=== PATIENT | female | born 1980 | race Caucasian/White ===

== ENCOUNTER → 2023-05-13 | Outpatient (CLI) | payer OTHER, SELFPAY ==
--- NOTE | 2023-05-13 08:19 | BI_ITS ---
MAMMOGRAPHY - BILATERAL SCREENING REASON FOR EXAM: Female, 42 years old. Routine annual screening examination. PERTINENT HISTORY: Grandmother with breast cancer. Aunt with breast cancer. TECHNIQUE: Digital bilateral breast maura (3D mammographic acquisition) in the CC and MLO projections. 2-D mediolateral oblique (MLO) and craniocaudad (CC) views of both breasts were obtained. CAD: Full Field Digital Mammography with Computer Added Detection was performed. COMPARISON: Comparison is made with prior outside examination June 19, 2021. FINDINGS: Breast Composition: The breasts are heterogeneously dense, which may obscure small masses. There are no dominant masses or suspicious calcifications. No other significant abnormalities are identified. There has been no significant change since the prior study. BI/SCRN MAMM (CAD)W/MAURA BILAT IMPRESSION: Stable bilateral screening mammogram. Yearly follow-up mammogram recommended. (A) ASSESSMENT CATEGORY: BIRADS Category 1: Negative. A letter regarding these results will be sent to the patient by the facility within 30 days. Approximately 10% of breast cancers are not detected by mammography. A normal mammogram should not delay biopsy of a clinically suspicious abnormality. [id number] Electronically Signed: Dheeraj Balderrama MD at 9:09 EDT ,
--- OUTSIDE RECORDS SUMMARY | 2023-05-13 08:30 | XMS RPT_ITS | CCD ---
Author Name Unknown Address [address] [place] [address] Organization [facility] Care Team Providers Care Parachute Panel Joiner Name Role Phone ERIC CORMIER Primary Care Physician ERIC CORMIER Attending Unavailable ERIC CORMIER Primary Care Unavailable ERIC CORMIER Attending Unavailable ERIC CORMIER Primary Care Unavailable ERIC CORMIER Primary Care Unavailable ERIC CORMIER Admitting Unavailable ERIC CORMIER Attending Unavailable Allergies Allergy Classification Reported Allergen(s) Allergy Type Date of Onset Reaction(s) Facility (5 sources) Latex Allergy to substance Eruption of skin (disorder), Itching (finding) [facility] (4 sources) Iodine; Translations: [iodine] Drug Allergy [facility] Medications Current Medications Medication Drug Class(es) Dates Sig (Normalized) Sig (Original) acetaminophen 325 mg oral capsule (9 sources) Start: 10-05-2021 acetaminophen 325 mg oral capsule Dose : 650 mg = 2 cap(s), Oral, q6h, PRN as needed for pain, # 40 cap(s), 0 Refill(s) Start Date: 10/05/21 Status: Ordered Problems Active Problems Problem Classification Problem Date Documented Da te Episodic/Chronic Abdominal pain (5 sources) Pain in female pelvis 07-23-2016 Episodic Genitourinary symptoms and ill-defined conditions (5 sources) Microscopic hematuria 07-23-2016 Episodic Mood disorders (1 source) Depressive disorder; Translations: [Depression, unspecified] Onset: 10-05-2021 Chronic Nausea and vomiting (1 source) Nausea and vomiting; Translations: [Nausea with vomiting, unspecified] Onset: 10-05-2021 Episodic Other female genital disorders (1 source) Abnormal uterine bleeding; Translations: [Abnormal uterine and vaginal bleeding, unspecified] Onset: 10-05-2021 Chronic Other gastrointestinal disorders (5 sources) Irritable bowel syndrome 07-23-2016 Chronic Other nutritional; endocrine; and metabolic disorders (6 sources) Obesity; Translations: [Obesity, unspecified] Onset: 10-05-2021 07-28-2016 Chronic Other nutritional; endocrine; and metabolic disorders (4 sources) Obese class II 10-05-2021 Chronic Urinary tract infections (6 sources) Chronic interstitial cystitis; Translations: [Interstitial cystitis (chronic) without hematuria] Onset: 10-05-2021 07-23-2016 Chronic Past or Other Problems Problem Classification Problem Date Documented Da te Episodic/Chronic Other screening for suspected conditions (not mental disorders or infectious disease) (2 sources) Abnormal coagulation profile; Translations: [Abnormal coagulation profile] Onset: 04-22-2022 Episodic Results Test Name Value Interpretation Reference Range Facil ity Vital Signs Date Time Vital Sign Value Performing Clinician Faci lity 10-06-2021 11:15-0400 Body temperature 98.24 [degF] DR LUCIO WARD DO [facility] 10-06-2021 11:15-0400 Diastolic blood pressure 85 mm[Hg] DR LUCIO WARD DO [facility] 10-06-2021 11:15-0400 Heart rate 77 /min DR LUCIO WARD DO [facility] 10-06-2021 11:15-0400 Respiratory rate 18 /min DR LUCOI WARD DO [facility] 10-06-2021 11:15-0400 Systolic blood pressure 132 mm[Hg] DR LUCIO WARD DO [facility] 10-06-2021 07:13-0400 Body temperature 97.7 [degF] DR LUCIO WARD DO [facility] 10-06-2021 07:13-0400 Diastolic blood pressure 77 mm[Hg] DR LUCIO WARD DO [facility] 10-06-2021 07:13-0400 Heart rate 77 /min DR LUCIO WARD DO [facility] 10-06-2021 07:13-0400 Respiratory rate 18 /min DR LUCIO WARD DO [facility] 10-06-2021 07:13-0400 Systolic blood pressure 124 mm[Hg] DR LUCIO WARD DO [facility] 10-06-2021 05:35-0400 Body temperature 98.24 [degF] DR LUCIO WARD DO [facility] 10-06-2021 05:35-0400 Diastolic blood pressure 82 mm[Hg] DR LUCIO WARD DO [facility] 10-06-2021 05:35-0400 Heart rate 116 /min DR LUCIO WARD DO [facility] 10-06-2021 05:35-0400 Mean blood pressure 59 mm[Hg] DR LUCIO WARD DO [facility] 10-06-2021 05:35-0400 Respiratory rate 18 /min DR LUCIO WARD DO [facility] 10-06-2021 05:35-0400 Systolic blood pressure 13 mm[Hg] DR LUCIO WARD DO [facility] 10-05-2021 21:07-0400 Mean blood pressure 116 mm[Hg] DR LUCIO WARD DO [facility] 10-05-2021 20:20-0400 Body temperature 97.34 [degF] DR LUCIO WARD DO [facility] 10-05-2021 15:21-0400 Body temperature 97.34 [degF] DR LUCIO WARD DO [facility] 10-05-2021 11:55-0400 Body temperature 96.8 [degF] DR LUCIO WARD DO [facility] 10-05-2021 11:45-0400 Diastolic Blood Pressure NBP [address] LUCIO WARD DO [facility] 10-05-2021 11:45-0400 Heart rate 96 /min DR LUCIO WARD DO [facility] 10-05-2021 11:45-0400 Mean blood pressure 82 mm[Hg] DR LUCIO WARD DO [facility] 10-05-2021 11:45-0400 Systolic Blood Pressure NBP [address] LUCIO WARD DO [facility] 10-05-2021 11:40-0400 Heart rate 90 /min DR LUCIO WARD DO [facility] 10-05-2021 11:37-0400 Heart rate 96 /min DR LUCIO WARD DO [facility] 10-05-2021 11:29-0400 Diastolic Blood Pressure NBP [address] LUCIO WARD DO [facility] 10-05-2021 11:29-0400 Mean blood pressure 90 mm[Hg] DR LUCIO WARD DO [facility] 10-05-2021 11:29-0400 Systolic Blood Pressure NBP [address] LUCIO WARD DO [facility] 10-05-2021 11:07-0400 Diastolic Blood Pressure NBP [address] LUCIO WARD DO [facility] 10-05-2021 11:07-0400 Systolic Blood Pressure NBP [address] LUCIO WARD DO [facility] 10-05-2021 11:06-0400 Mean blood pressure 82 mm[Hg] DR LUCIO WARD DO [facility] 10-05-2021 09:55-0400 Body temperature 97.99 [degF] DR LUCIO WARD DO [facility] 10-05-2021 09:50-0400 Body temperature 97.93 [degF] DR LUCIO WARD DO [facility] 10-05-2021 09:45-0400 Body temperature 97.92 [degF] DR LUCIO WARD DO [facility] 10-05-2021 05:57-0400 Body height 170.[address] LUCIO WARD DO [facility] 10-05-2021 05:57-0400 Body weight 115.[address] LUCIO WARD DO [facility] 10-05-2021 05:57-0400 diastolic 80 mm[Hg] DR LUCIO WARD DO [facility] 10-05-2021 05:57-0400 Heart rate 90 /min DR LUCIO WARD DO [facility] 10-05-2021 05:57-0400 systolic 146 mm[Hg] DR LUCIO WARD DO [facility] 09-21-2021 07:53-0400 Body height 170.[address] LUCIO WARD DO [facility] 09-21-2021 07:53-0400 Body temperature 98.06 [degF] DR LUCIO WARD DO [facility] 09-21-2021 07:53-0400 Body weight 114.[address] LUCIO WARD DO [facility] 09-21-2021 07:53-0400 diastolic 95 mm[Hg] DR LUCIO WARD DO [facility] 09-21-2021 07:53-0400 Heart rate 80 /min DR LUCIO WARD DO [facility] 09-21-2021 07:53-0400 systolic 146 mm[Hg] DR LUCIO WARD DO [facility] Encounters Encounter Date Encounter Type Care Provider Facility Start: 03-30-2023 End: 03-30-2023 Patient encounter procedure ERIC CORMIRE [facility] Start: 03-25-2023 ambulatory ERIC CORMIER Facility:B Start: 03-23-2023 End: 03-24-2023 ambulatory ERIC CORMIER Facility:A Start: 03-23-2023 End: 03-23-2023 Patient encounter procedure ERIC CORMIER [facility] Start: 04-22-2022 End: 04-27-2022 ambulatory ERIC CORMIER Facility:A Start: 10-30-2021 End: 10-30-2021 Patient encounter procedure ERIC CORMIER [facility] Start: 10-05-2021 End: 10-06-[address] LUCIO WARD DO [facility] Start: 09-21-2021 End: 09-21-[address] LUCIO WARD DO [facility] Procedures Date Procedure Procedure Detail Performing Clinician Start: 02-28-2014 Endoscope, device (p hysical object) DR LUCIO WARD DO Start: 02-28-[address] SHYANNE WARD DO Start: 02-28-2001 Endoscope, device (p hysical object) DR LUCIO WARD DO Immunizations Immunization Date Immunization Notes Care Provider [facility] 12-24-2020 hepatitis B vaccine, adult dosage DR LUCIO WARD DO [facility] 12-24-2020 SARS-CoV-2 (COVID-19 ) mRNA-[id number] LUCIO WARD DO [facility] 12-01-2020 influenza virus vacc ine, unspecified formulation DR LUCIO WARD DO [facility] 07-24-2020 hepatitis B vaccine, adult dosage DR LUCIO WARD DO [facility] 03-26-2020 SARS-CoV-2 (COVID-19 ) mRNA-[id number] LUCIO WARD DO [facility] 02-27-2020 SARS-CoV-2 (COVID-19 ) mRNA-[address] LUCIO WARD DO [facility] 12-14-2019 hepatitis B vaccine, adult dosage DR LUCIO WARD DO [facility] 12-14-2019 influenza virus vacc ine, unspecified formulation DR LUCIO WARD DO [facility] 12-08-2018 influenza virus vacc ine, unspecified formulation DR LUCIO WARD DO [facility] 11-24-2017 influenza virus vacc ine, unspecified formulation DR LUCIO WARD DO [facility] 01-02-2014 influenza virus vacc ine, unspecified formulation DR LUCIO WARD DO [facility] 12-21-2012 influenza virus vacc ine, unspecified formulation DR LUCIO WARD DO [facility] 01-14-2012 influenza virus vacc ine, unspecified formulation DR LUCIO WARD DO [facility] 10-26-2010 influenza virus vacc ine, unspecified formulation DR LUCIO WARD DO [facility] 12-08-2009 tetanus toxoid, redu driss diphtheria toxoid, and acellular pertussis vaccine, adsorbed DR LUCIO WARD DO [facility] Payers Date Payer Category Payer Unknown [id number] 1980 Unknown [id number] 1980 Unknown [id number] 1980 Unknown [id number] Social History Date Type Detail Facility Start: 09-21-2021 Tobacco smoking status Never s moked tobacco (finding) [facility] Sex Assigned At Female [facility] Functional Status Date Assessment Result [facility] [place] 10-06-2021 Functional Status None [facility] 10-06-2021 Functional Status Yes [facility] 10-06-2021 Functional Status Multilevel home [facility] 10-06-2021 Functional Status Done [facility] 10-05-2021 Functional Status High Risk Safe ty Non-Slip footwear, Room check performed [facility] 10-05-2021 Functional Status Patient Identi fied Identification band, Verbal [facility] 10-05-2021 Functional Status [facility] 10-05-2021 Functional Status Maintained [facility] Mental Status Date Assessment Result [facility] [place] 10-06-2021 Mental Status Orientation Oriented x 4 [facility] 10-05-2021 Mental Status [facility] 10-05-2021 Mental Status [facility] 10-05-2021 Mental Status [facility] Clinical Notes 06-25-2021 to 03-23-2023 Note Date & Type Note Facility 03-23-2023 Note ORIGINAL EXAMINATION: CT OF THE ABDOMEN AND PELVIS WITH CONTRAST03/23/2023 6:[address] ABDOMEN/PELVIS WITH CONTRAST TECHNIQUE: CT of the abdomen and pelvis was performed with the administration of intravenous contrast. Multiplanar reformatted images are provided for review. Automated exposure control, iterative reconstruction, and/or weight based adjustment of the mA/kV was utilized to reduce the radiation dose to as low as reasonably achievable. HISTORY: ORDERING SYSTEM PROVIDED HISTORY: Reason for Exam: UNSPECIFIED ABDOMINAL PAIN PT STATES ABD PAIN, PROGRESSIVELY GETTING WORSE SINCE [id number], LLQ PAIN, WEIGHT LOSS, HYSTERECTOMY 22' FINDINGS: The size, density, and morphology of the liver, spleen, adrenals, kidneys, pancreas and unopacified loops of bowel are unremarkable. Prior cholecystectomy. The opacified aorta demonstrates normal size and morphology without aneurysmal dilation or dissection. There are no enlarged lymph nodes by pathologic size criteria. Appendix is normal. There is no free fluid within the pelvis. Prior hysterectomy. The bladder has an unremarkable CT appearance. The osseous structures are without gross lytic or sclerotic lesion. The lung bases are clear. IMPRESSION: No acute intra-abdominal intrapelvic pathology. Interpreted by: Joaquin Starr MD Preliminary Report By: Joaquin Starr MD Electronically signed By Joaquin Starr MD Dictated Date: 03/23/2023 9:58:49 PM Prelim Date: 03/23/2023 10:00:57 PM Sign Date: 03/23/2023 10:00:57 PM Ordering Provider: [facility] 10-30-2021 Note ORIGINAL EXAMINATION: CTA OF THE CHEST 10/30/2021 1:08 pm TECHNIQUE: CTA of the chest was performed after the administration of intravenous contrast. Multiplanar reformatted images are provided for review. MIP images are provided for review. Automated exposure control, iterative reconstruction, and/or weight based adjustment of the mA/kV was utilized to reduce the radiation dose to as low as reasonably achievable. COMPARISON: None. HISTORY: ORDERING SYSTEM PROVIDED HISTORY: Reason for Exam: ELEVATED D DIMER, SOB, POST OP ELEVATED D DIMER, SOB, 3.5 WKS POST OP/HYSTER FINDINGS: No osseous abnormality identified. Minimal scattered areas of subsegmental atelectasis are present at the lower lobes bilaterally and there is also minimal volume loss at the posterior margin of the left upper lobe. No other airspace disease is visible. Trace left pleural fluid is noted. No mediastinal adenopathy is identified. This exam is positive for multiple pulmonary artery segmental defects compatible with pulmonary emboli. There is distal main pulmonary artery involvement bilaterally, with bilateral lower lobe segmental emboli. No definite indicators of right heart strain seen. No additional contributory abnormality. IMPRESSION: Multiple bilateral segmental pulmonary emboli, especially lower lobes, with some distal main pulmonary artery involvement as well. No evidence for right heart strain. IMPORTANT: PHYSICIAN, ATTEND TO THIS REPORT CAROLE!!! Interpreted by: Pablo Duenas MD Preliminary Report By: Pablo Duenas MD Electronically signed By Pablo Duenas MD Dictated Date: 10/30/2021 1:09:57 PM Prelim Date: 10/30/2021 1:12:29 PM Sign Date: 10/30/2021 1:12:29 PM Ordering Provider: [facility] 10-30-2021 Note ORIGINAL EXAMINATION: CTA OF THE CHEST 10/30/2021 1:08 pm TECHNIQUE: CTA of the chest was performed after the administration of intravenous contrast. Multiplanar reformatted images are provided for review. MIP images are provided for review. Automated exposure control, iterative reconstruction, and/or weight based adjustment of the mA/kV was utilized to reduce the radiation dose to as low as reasonably achievable. COMPARISON: None. HISTORY: ORDERING SYSTEM PROVIDED HISTORY: Reason for Exam: ELEVATED D DIMER, SOB, POST OP ELEVATED D DIMER, SOB, 3.5 WKS POST OP/HYSTER FINDINGS: No osseous abnormality identified. Minimal scattered areas of subsegmental atelectasis are present at the lower lobes bilaterally and there is also minimal volume loss at the posterior margin of the left upper lobe. No other airspace disease is visible. Trace left pleural fluid is noted. No mediastinal adenopathy is identified. This exam is positive for multiple pulmonary artery segmental defects compatible with pulmonary emboli. There is distal main pulmonary artery involvement bilaterally, with bilateral lower lobe segmental emboli. No definite indicators of right heart strain seen. No additional contributory abnormality. IMPRESSION: Multiple bilateral segmental pulmonary emboli, especially lower lobes, with some distal main pulmonary artery involvement as well. No evidence for right heart strain. IMPORTANT: PHYSICIAN, ATTEND TO THIS REPORT CAROLE!!! Interpreted by: Pablo Duenas MD Preliminary Report By: Pablo Duenas MD Electronically signed By Pablo Duenas MD Dictated Date: 10/30/2021 1:09:57 PM Prelim Date: 10/30/2021 1:12:29 PM Sign Date: 10/30/2021 1:12:29 PM Ordering Provider: [facility] 10-06-2021 Note A. Received in formalin, labeled with the patients name, Case #[id number], and uterus and cervix Weight/dimensions-160 g and measures 10.5 cm (fundus to cervix), 5 cm (cornu to cornu), 5.5 cm (anterior to posterior). Vlomre-xgd-bfnh, smooth Cervix/endocervix-4.5 cm in diameter and 4.5 cm in length Gujpwsrswot-kpapoolcav-wlnjrw endometrial cavity measuring 3 x 4 cm, endometrium lining measuring 0.2 cm Okxjllnswr-vic-pmjg measuring up to 3 cm with no masses or nodules identified. RS-3 Cassette Summary: A1-cervix A2-Anterior endomyometrium A3-Posterior endomyometrium Dictated by [facility] 10-06-2021 Note A. Received in formalin, labeled with the patients name, Case #[id number], and uterus and cervix Weight/dimensions-160 g and measures 10.5 cm (fundus to cervix), 5 cm (cornu to cornu), 5.5 cm (anterior to posterior). Hmpaeh-cfb-hjrk, smooth Cervix/endocervix-4.5 cm in diameter and 4.5 cm in length Liupdytcrrz-meymsqfaen-zoxsts endometrial cavity measuring 3 x 4 cm, endometrium lining measuring 0.2 cm Lxemjpoomb-mdr-nhep measuring up to 3 cm with no masses or nodules identified. RS-3 Cassette Summary: A1-cervix A2-Anterior endomyometrium A3-Posterior endomyometrium Dictated by [facility] 10-06-2021 Note Discharge Instructions Thank you for allowing [facility] to assist you with your healthcare needs. The following is important discharge information regarding your hospital visit. Your Care Team ERIC CORMIER Your Diagnosis Abnormal uterine bleeding Post-op pain Post-operative nausea and vomiting Class II obesity Depression Interstitial cystitis What to do next Instructions From Your Doctor No heavy lifting > 10 pounds for 6 weeks. No swimming or tub baths. Showers are okay. Pelvic Rest until seen for your post-op appointment. No driving for 2 weeks or if taking narcotic pain medications. Call the office if you have a fever > 100.4 F, nausea/vomiting, heavy vaginal bleeding, redness/bruising/drainage from incisions, or uncontrolled pain. Please make sure to take stool softeners as needed to prevent constipation. Follow the wound care instructions provided to you from the office. Follow Up Appointments Follow Up with LUCIO WARD DO, Obstetrics & Gynecology When Why: Follow-up as scheduled Where: [address] [place] [address]- [phone] The Following Activity and Diet Have Been Ordered for You Discharge Activity - Discontinued -- Follow the post-operative/post-procedure activity instructions provided by your physician's office., 10/05/21 12:01:00 EDT Discharge Activity - Ordered -- Lifting Restricted less than 10 pounds May Shower Sexual [place] Restricted, No intercouorse or tub bathing for 6 weeks, no driving while taking pain meds, 10/06/21 8:08:00 EDT Discharge Diet - Ordered -- No changes were made to your diet during your hospital stay. Please resume your pre hospitalization diet on discharge., 10/06/21 8:08:00 EDT The Following Equipment Has Been Ordered for You Discharge Home Equipment Discharge Wound Care - Ordered -- Call office if temp greater than 100.4, increase in bleeding, or foul smelling discharge, 10/06/21 8:08:00 EDT The Following Treatments Have Been Ordered for You Discharge Labs No qualifying data available. Discharge Radiology No qualifying data available. Other Therapies No qualifying data available. Post Acute Orders No qualifying data available. Someone Will Contact You Regarding These Home Health Referrals No home referrals have been ordered for you. No one will call you. Allergies Latex (Rash, Itching) iodine Medications Please ask your primary doctor or pharmacist before taking any other medication not listed, including over the counter drugs, herbal medications, vitamins and or supplements as they may interact with your home medications. What How Much When Why Instructions Last Dose Unchanged acetaminophen (acetaminophen 325 mg oral capsule) 2 cap by mouth Every 6 hours as needed for as needed for pain Printed Prescription Unchanged acetaminophen (Tylenol Extra Strength 500 mg oral tablet) 2 tab(s) by mouth Every 4 hours as needed for for pain Unchanged amitriptyline (amitriptyline 10 mg oral tablet) 1 tab(s) by mouth Daily at bedtime Unchanged ergocalciferol (Vitamin D2 1.25 mg (50,000 intl units) oral capsule) 1 cap by mouth Every week ON TUESDAY Unchanged ibuprofen (ibuprofen 200 mg oral tablet) 2 tab(s) by mouth Every 4 hours as needed for for pain Unchanged ibuprofen (ibuprofen 600 mg oral tablet) 1 tab(s) by mouth Every 6 hours as needed for for pain Take with food or milk. Printed Prescription Unchanged oxyCODONE (oxyCODONE 5 mg oral tablet ( IMMEDIATE release )) 1 tab(s) by mouth Every 6 hours as needed for for pain Post-op pain Duration: 4 Days Printed Prescription Unchanged senna (senna (sennosides) 8.6 mg oral tablet) 2 tab(s) by mouth Daily at bedtime as needed for for constipation Printed Prescription Unchanged sertraline (sertraline 50 mg oral tablet) 1 tab(s) by mouth Daily at bedtime Please take this list to your next doctor s visit. Bring all medications you take, including over the counter medications, herbals and other supplements with you to your doctor s visit. Patients and families are reminded to discard old lists and to update any records with all medication providers or retail pharmacies. Medication Leaflets acetaminophen (oral) (a SEET a MIN oh fen) Actamin, Anacin AF, Aurophen, Bromo [place], Children's Tylenol, Mapap, M-Pap, Pharbetol, [place] Childrens, Tactinal, Tempra Quicklets, Tycolene, Tylenol, Vitapap What is the most important information I should know about acetaminophen? An overdose of acetaminophen can damage your liver or cause . Call your doctor at once if you have upper stomach pain, loss of appetite, dark urine, or jaundice (yellowing of your skin or eyes). Stop taking this medicine and get medical help if you have skin redness or a blistering rash. What is acetaminophen? Acetaminophen is used to reduce fever and relieve minor pain caused by conditions such as colds or flu, headache, muscle aches, arthritis, and menstrual cramps. Acetaminophen may also be used for purposes not listed in this medication guide. What should I discuss with my healthcare provider before taking acetaminophen? You should not take acetaminophen if you are allergic to it, or if you take other medications that contain acetaminophen. Ask a doctor or pharmacist if this medicine is safe to use if you've ever had cirrhosis of the liver, or if you drink alcohol daily. Ask a doctor before using this medicine if you are or . How should I take acetaminophen? Use exactly as directed on the label, or as prescribed by your doctor. An acetaminophen overdose can damage your liver or cause . Adults and teenagers at least 12 years old: Do not take more than 1000 milligrams (mg) at one time or more than 4000 mg in 24 hours. Children younger than 12 years old: Do not take more than 5 doses of children's formula acetaminophen in 24 hours. Do not give extra-strength acetaminophen to a child younger than 12 years old without medical advice. A child's dose is based on age and weight. Carefully follow the dosing instructions provided with this medicine. Ask a doctor before giving this medicine to a child younger than 2 years. Acetaminophen made for infants comes with its own medicine dropper or oral syringe. Measuring with the wrong device may cause an overdose. Use only the provided dosing device provided to measure an infant's dose. Acetaminophen comes in many different forms such as capsules, liquid, chewable or disintegrating tablets, and dissolving powders or granules. Read and carefully follow any Instructions for Use provided with your medicine. Ask your doctor or pharmacist if you need help. Stop taking acetaminophen and call your doctor if: you still have a sore throat after 2 days of use; you still have a fever after 3 days of use; you still have pain after 7 days of use (or 5 days if treating a child); you have a skin rash, ongoing headache, nausea, vomiting, redness or swelling; or your symptoms get worse, or if you have any new symptoms. Taking acetaminophen may cause false results with certain blood glucose monitors. If you have diabetes, ask your doctor about the best way to monitor your blood sugar levels while using acetaminophen. Store at room temperature away from heat and moisture. What happens if I miss a dose? Acetaminophen is used when needed. If you are on a dosing schedule, skip any missed dose. Do not use two doses at one time. What happens if I overdose? Seek emergency medical attention or call the Poison Help line at . An overdose can be fatal. Overdose symptoms include vomiting, stomach pain, and yellowing of your skin or eyes. What should I avoid while taking acetaminophen? Avoid using other medicines that may contain acetaminophen. Avoid drinking alcohol. What are the possible side effects of acetaminophen? Get emergency medical help if you have signs of an allergic reaction: hives; difficulty breathing; swelling of your face, lips, tongue, or throat. In rare cases, acetaminophen may cause a severe skin reaction that can be fatal, even if you took acetaminophen in the past and had no reaction. Stop taking this medicine and call your doctor right away if you have skin redness or a rash that spreads and causes blistering and peeling. Stop taking acetaminophen and call your doctor at once if you have signs of liver problems: stomach pain (upper right side); loss of appetite; tiredness, itching; dark urine, tc-colored stools; or jaundice (yellowing of the skin or eyes). Less serious side effects may be more likely, and you may have none at all. This is not a complete list of side effects and others may occur. Call your doctor for medical advice about side effects. You may report side effects to FDA at 7-287-TFV-2274. What other drugs will affect acetaminophen? Other drugs may affect acetaminophen, including prescription and qdbh-asl-avitavi medicines, vitamins, and herbal products. Tell your doctor about all other medicines you use. Where can I get more information? Your pharmacist can provide more information about acetaminophen. Remember, keep this and all other medicines out of the reach of children, never share your medicines with others, and use this medication only for the indication prescribed. Every effort has been made to ensure that the information provided by [employer]. ('[employer]') is accurate, up-to-date, and complete, but no guarantee is made to that effect. Drug information contained herein may be time sensitive. [employer] information has been compiled for use by healthcare practitioners and consumers in the [place] and therefore [employer] does not warrant that uses outside of the [place] are appropriate, unless specifically indicated otherwise. [employer] drug information does not endorse drugs, diagnose patients or recommend therapy. [employer] drug information is an informational resource designed to assist licensed healthcare practitioners in caring for their patients and/or to serve consumers viewing this service as a supplement to, and not a substitute for, the expertise, skill, knowledge and judgment of healthcare practitioners. The absence of a warning for a given drug or drug combination in no way should be construed to indicate that the drug or drug combination is safe, effective or appropriate for any given patient. [employer] does not assume any responsibility for any aspect of healthcare administered with the aid of information [employer] provides. The information contained herein is not intended to cover all possible uses, directions, precautions, warnings, drug interactions, allergic reactions, or adverse effects. If you have questions about the drugs you are taking, check with your doctor, nurse or pharmacist. Copyright 9609-3101 [facility] [employer]. Version: .. Revision Date: 04/17/2021. ibuprofen (EYE bue PROE fen) Advil, Genpril, IBU, Midol IB, Motrin IB, Proprinal, Smart Sense Children's Ibuprofen What is the most important information I should know about ibuprofen? Ibuprofen can increase your risk of fatal heart attack or stroke. Do not use this medicine just before or after heart bypass surgery (coronary artery bypass graft, or CABG). Ibuprofen may also cause stomach or intestinal bleeding, which can be fatal. What is ibuprofen? Ibuprofen is a nonsteroidal anti-inflammatory drug (NSAID). Ibuprofen is used to reduce fever and treat pain or inflammation caused by many conditions such as headache, toothache, back pain, arthritis, menstrual cramps, or minor injury. This medicine is used in adults and children who are at least 6 months old. Ibuprofen may also be used for purposes not listed in this medication guide. What should I discuss with my healthcare provider before taking ibuprofen? Ibuprofen can increase your risk of fatal heart attack or stroke, even if you don't have any risk factors. Do not use this medicine just before or after heart bypass surgery (coronary artery bypass graft, or CABG). Ibuprofen may also cause stomach or intestinal bleeding, which can be fatal. These conditions can occur without warning while you are using ibuprofen, especially in older adults. You should not use ibuprofen if you are allergic to it, or if you have ever had an asthma attack or severe allergic reaction after taking aspirin or an NSAID. Ask a doctor or pharmacist if this medicine is safe to use if you have ever had: heart disease, high blood pressure, high cholesterol, diabetes, or if you smoke; a heart attack, stroke, or blood clot; stomach ulcers or bleeding; liver or kidney disease; asthma; or if you take aspirin to prevent heart attack or stroke. Ask a doctor before using this medicine if you are or . If you are , you should not take ibuprofen unless your doctor tells you to. Taking an NSAID during the last 20 weeks of can cause serious heart or kidney problems in the unborn baby and possible complications with your . Do not give ibuprofen to a child younger than 6 months old without the advice of a doctor. How should I take ibuprofen? Use exactly as directed on the label, or as prescribed by your doctor. Use the lowest dose that is effective in treating your condition. An ibuprofen overdose can damage your stomach or intestines. The maximum amount of ibuprofen for adults is 800 milligrams per dose or 3200 mg per day (4 maximum doses). A child's dose of ibuprofen is based on the age and weight of the child. Carefully follow the dosing instructions provided with children's ibuprofen for the age and weight of your child. Ask a doctor or pharmacist if you have questions. Take ibuprofen with food or milk to lessen stomach upset. Shake the oral suspension (liquid) before you measure a dose. Use the dosing syringe provided, or use a medicine dose-measuring device (not a kitchen spoon). You must chew the chewable tablet before you swallow it. Store at room temperature away from moisture and heat. Do not allow the liquid medicine to freeze. What happens if I miss a dose? Since ibuprofen is used when needed, you may not be on a dosing schedule. Skip any missed dose if it's almost time for your next dose. Do not use two doses at one time. What happens if I overdose? Seek emergency medical attention or call the Poison Help line at . Overdose symptoms may include nausea, vomiting, stomach pain, drowsiness, black or bloody stools, coughing up blood, shallow breathing, fainting, or coma. What should I avoid while taking ibuprofen? Ask a doctor or pharmacist before using other medicines for pain, fever, swelling, or cold/flu symptoms. They may contain ingredients similar to ibuprofen (such as aspirin, ibuprofen, ketoprofen, or naproxen). Avoid taking aspirin unless your doctor tells you to. If you also take aspirin to prevent stroke or heart attack, taking ibuprofen can make aspirin less effective in protecting your heart and blood vessels. If you take both medicines, take ibuprofen at least 8 hours before or 30 minutes after you take aspirin (non-enteric coated form). Avoid drinking alcohol. It may increase your risk of stomach bleeding. What are the possible side effects of ibuprofen? Get emergency medical help if you have signs of an allergic reaction (hives, difficult breathing, swelling in your face or throat) or a severe skin reaction (fever, sore throat, burning eyes, skin pain, red or purple skin rash with blistering and peeling). Get emergency medical help if you have signs of a heart attack or stroke: chest pain spreading to your jaw or shoulder, sudden numbness or weakness on one side of the body, slurred speech, leg swelling, feeling short of breath. Stop using ibuprofen and call your doctor at once if you have: changes in your vision; shortness of breath (even with mild exertion); swelling or rapid weight gain; a skin rash, no matter how mild; signs of stomach bleeding--bloody or tarry stools, coughing up blood or vomit that looks like coffee grounds; liver problems--nausea, upper stomach pain, itching, tired feeling, flu-like symptoms, loss of appetite, dark urine, tc-colored stools, jaundice (yellowing of the skin or eyes); low red blood cells (anemia)--pale skin, feeling light-headed or short of breath, rapid heart rate, trouble concentrating; or kidney problems--little or no urinating, painful or difficult urination, swelling in your feet or ankles, feeling tired or short of breath. Common side effects may include: nausea, vomiting, gas; bleeding; or dizziness, headache. This is not a complete list of side effects and others may occur. Call your doctor for medical advice about side effects. You may report side effects to FDA at 8-071-PHH-8107. What other drugs will affect ibuprofen? Ask your doctor before using ibuprofen if you take an antidepressant. Taking certain antidepressants with an NSAID may cause you to bruise or bleed easily. Ask a doctor or pharmacist before using ibuprofen with any other medications, especially: cyclosporine; lithium; methotrexate; a blood thinner (warfarin, Coumadin, Jantoven); heart or blood pressure medication, including a diuretic or 'water pill'; or steroid medicine (such as prednisone). This list is not complete. Other drugs may affect ibuprofen, including prescription and dfxn-dsq-mlvzmse medicines, vitamins, and herbal products. Not all possible drug interactions are listed here. Where can I get more information? Your pharmacist can provide more information about ibuprofen. Remember, keep this and all other medicines out of the reach of children, never share your medicines with others, and use this medication only for the indication prescribed. Every effort has been made to ensure that the information provided by [employer]. ('[employer]') is accurate, up-to-date, and complete, but no guarantee is made to that effect. Drug information contained herein may be time sensitive. [employer] information has been compiled for use by healthcare practitioners and consumers in the [place] and therefore [employer] does not warrant that uses outside of the [place] are appropriate, unless specifically indicated otherwise. [employer] drug information does not endorse drugs, diagnose patients or recommend therapy. [employer] drug information is an informational resource designed to assist licensed healthcare practitioners in caring for their patients and/or to serve consumers viewing this service as a supplement to, and not a substitute for, the expertise, skill, knowledge and judgment of healthcare practitioners. The absence of a warning for a given drug or drug combination in no way should be construed to indicate that the drug or drug combination is safe, effective or appropriate for any given patient. [employer] does not assume any responsibility for any aspect of healthcare administered with the aid of information [employer] provides. The information contained herein is not intended to cover all possible uses, directions, precautions, warnings, drug interactions, allergic reactions, or adverse effects. If you have questions about the drugs you are taking, check with your doctor, nurse or pharmacist. Copyright 1589-8236 [employer]. Version: 22.01. Revision Date: 01/23/2020. Education Materials Vaginal Hysterectomy, Care After Refer to this sheet in the next few weeks. These instructions provide you with information on caring for yourself after your procedure. Your health care provider may also give you more specific instructions. Your treatment has been planned according to current medical practices, but problems sometimes occur. Call your health care provider if you have any problems or questions after your procedure. WHAT TO EXPECT AFTER THE PROCEDURE After your procedure, it is typical to have the following: Pelvic pain. You will be given pain medicine to control it. Sore throat from the breathing tube that was inserted during surgery. Gas pains are felt higher in the abdomen and respond well to Simethicone HOME CARE INSTRUCTIONS Only take ssuk-koq-fvosvss or prescription medicines for pain, discomfort, or fever as directed by your health care provider. Do not take aspirin. It can cause bleeding. Do not drive when taking pain medicine. Follow your health care provider's advice regarding diet, exercise, lifting, driving, and general activities. Resume your usual diet as directed and allowed. Get plenty of rest and sleep. Do not douche, use tampons, or have sexual intercourse for at least 6 weeks, or until your health care provider gives you permission. Monitor your temperature and notify your health care provider of a fever. Take showers instead of baths for 2 3 weeks. Do not drink alcohol until your health care provider gives you permission. If you develop constipation, you may take a mild laxative with your health care provider's permission. Bran foods may help with constipation problems. Drinking enough fluids to keep your urine clear or pale yellow may help as well. Try to have someone home with you for 1 2 weeks to help around the house. Keep all of your follow-up appointments as directed by your health care provider. SEEK MEDICAL CARE IF: You have increasing pain around your pelvis. You notice a bad smell coming from your vagina You feel dizzy or lightheaded. You have pain or bleeding when you urinate. You have persistent diarrhea. You have persistent nausea and vomiting. You have abnormal vaginal discharge. You have a rash. You have any type of abnormal reaction or develop an allergy to your medicine. You have poor pain control with your prescribed medicine. SEEK IMMEDIATE MEDICAL CARE IF: You have a fever. You have severe abdominal pain. You have chest pain. You have shortness of breath. You faint. You have pain, swelling, or redness in your leg. You have heavy vaginal bleeding with blood clots. MAKE SURE YOU: Understand these instructions. Will watch your condition. Will get help right away if you are not doing well or get worse. Document Released: 02/03/2012 Document Revised: 02/19/2014 Document Reviewed: 08/30/2013 ExitCare Patient Information 2015 ExitCare, [employer]. This information is not intended to replace advice given to you by your health care provider. Make sure you discuss any questions you have with your health care provider. Additional Information VACCINATE! IT SAVES LIVES! Members of the community who have not yet received the COVID-19 vaccine and would like to receive it can visit one of [facility] vaccine clinics. There are many vaccine clinic locations within the [facility]. For locations and available times, please visit [email or web address] It is important to note that some COVID mobile vaccine clinics are held outdoors and may be canceled in rainy or stormy conditions. To learn more about pediatric vaccinations (ages 5-11), we invite you to visit the [facility] webpage. [email or web address] To learn more about the COVID-19 vaccine, we invite you to visit the [employer] website for a list of frequently asked questions. [email or web address] [facility] Patient Portal Access Instructions: Stay connected with your healthcare team and access your personal medical information anytime with the [employer] Patient Portal.If you would like a full copy of your medical records, please contact the [facility] Medical Records Department, Tuesday through Tuesday between 8a.m. and 4:30p.m. Please follow the directions below to access the portal: 1.Access the email account you provided upon registration to the hospital.2.Look for an invitation email from [facility].3.Open the email and access the invitation link: Accept Invitation to [facility]4.Fill in the required linn to create your account. Sign into [email or web address] with your username and password that you created in the above steps to stay up to date. You can then view a summary of results, a summary of your visits, and the ability to download your summaries to your computer or send the information securely to a physician. Remember that your healthcare information is confidential, so carefully consider who you will allow to register on the [facility] Patient Portal for access to your information. You can also access the [email or web address] Patient Portal on the [employer] gagan. Simply click on Health Records under Health Data and then click on the [employer] logo. HOW TO SAFELY DISPOSE OF PRESCRIPTION MEDICATIONS Please use one of the following methods to safely dispose of your unused medications. 1.Use a drug disposal kit: the drug disposal pouch allows you to safely discard your old and unused drugs. Ask your nurse to give you one when you are discharged.2.Visit a local take-back location: Many local pharmacies and police departments have programs that collect old and unwanted prescription drugs. Call your local pharmacy or go to http://[employer]/0S9Dt7j to find one close to you.3.Make use of household items: Use cat litter or old coffee grounds to dispose medications if other options are not available. Mix your drugs with these household products, seal them in an airtight container and throw it into the garbage. Call [facility]: [phone] to be sure your drugs can be disposed of in this way. Some medicines may require a different approach.4.Never flush your medications down the toilet. IF YOU HAVE BEEN PRESCRIBED AN OPIOID FOR PAIN If you have been prescribed an opioid (such as hydrocodone, oxycodone or morphine), it is critical to understand the possible side effects and risks of opioid pain medications. Even when taken as directed, opioids can have several side effects including: Tolerance, meaning you might need to take more of a medication for the same pain relief. Nausea, vomiting and/or constipation. Sleepiness, dizziness, dry mouth, confusion, depression or itching. Physical dependence, meaning you have withdrawal symptoms when a medication is stopped, can develop within a few days. KNOW YOUR RESPONSIBILITIES It is important to know exactly how much and how often to take the opioid pain medications you are prescribed. Never take opioids in higher amounts or more often than prescribed. Do not combine opioids with alcohol or other drugs that cause drowsiness, such as benzodiazepines, also known as benzos, including diazepam and alprazolam, muscle relaxants or sleep aids. Never sell or share prescription opioids. This is illegal. Store opioids in a secure place and out of reach of others (including children, family, friends and visitors). The last page of this document has been signed and retained as a CHART COPY. Signatures Patient Education Materials 9 - AO Vaginal Hysterectomy, Care After - 01/2017(CUSTOM) Medication Leaflets acetaminophen (oral), ibuprofen My discharge plan and instructions have been reviewed and explained to me and IMELIA AMANDA L understand my current condition and have read and understand these discharge instructions. I have received a written copy of the plan/instructions. If I have questions, I am aware that I should contact my doctor. Patient/Catholic Priest Signature: Date/Time: Relationship to Patient: Witness Name/Signature: Date/Time: [facility] 10-06-2021 Discharge summary Date of Service 10/06/2021 Discharge Diagnosis 1. Abnormal uterine bleeding (N93.9 - ICD-10-CM) 2. Post-op pain (G89.18 - ICD-10-CM) 3. Post-operative nausea and vomiting (R11.2 - ICD-10-CM) 4. Class II obesity (E66.9 - ICD-10-CM) 5. Depression (F32.A - ICD-10-CM) 6. Interstitial cystitis (N30.10 - ICD-10-CM) Additional Orders: Ordered: Discharge,10/06/21 8:08:00 EDT, Discharged to: Home, When tolerating regular diet, ambulating without difficulty, voiding spontaneously and pain controlled with po pain medication Ordered: Discharge Activity,Lifting Restricted less than 10 pounds May Shower Sexual [place] Restricted, No intercouorse or tub bathing for 6 weeks, no driving while taking pain meds, 10/06/21 8:08:00 EDT Ordered: Discharge Diet,No changes were made to your diet during your hospital stay. Please resume your pre hospitalization diet on discharge., 10/06/21 8:08:00 EDT Ordered: Discharge Wound Care,Call office if temp greater than 100.4, increase in bleeding, or foul smelling discharge, 10/06/21 8:08:00 EDT Hospital Course Patient is a 41-year-old female admitted for postoperative care. She underwent total vaginal hysterectomy for abnormal uterine bleeding and thickened endometrial lining.. The surgery was uncomplicated. In the PACU she had nausea and vomiting along with left lower quadrant abdominal pain which radiated to her groin and upper thigh and wrapped around her lower back. This was not relieved with pain medication. Her nausea and vomiting were not relieved with antinausea medications. She was subsequently admitted. She was started on Reglan and IV Zofran for antinausea along with Tylenol and Toradol. Oxycodone and Dilaudid were available as needed. On postoperative day 1, she was doing well. Her nausea and vomiting were completely alleviated. She was able to eat without nausea symptoms developing. She indicated that her pain was well controlled. She was ambulating and voiding spontaneously. Her left lower quadrant abdominal pain had resolved. She did not have any fevers, chills, shortness of breath, chest pain. CBC at discharge WBC 9.2, HCT 31.6, Hgb 10.8 PLT 237. She was discharged with ibuprofen, acetaminophen, and oxycodone for pain control. Will follow up outpatient with Dr. Ward. Allergies Latex (Rash, Itching) iodine Procedures Total vaginal hysterectomy Consults No qualifying data available. Objective Vitals and Measurements T: 36.5 C (Oral) TMIN: 35.75 C TMAX: 37.4 C (Temporal Artery) HR: 77 RR: 18 BP: 124/77 SpO2: 95% Weight Dosing Weight: 115.1 kg (10/05/21) Code Status Code Status - Ordered -- 10/05/21 18:35:00 EDT, Full Code, Constant Order Admission Date 10/05/2021 Discharge Date 10/06/2021 Patient Instructions No heavy lifting > 10 pounds for 6 weeks. No swimming or tub baths. Showers are okay. Pelvic Rest until seen for your post-op appointment. No driving for 2 weeks or if taking narcotic pain medications. Call the office if you have a fever > 100.4 F, nausea/vomiting, heavy vaginal bleeding, redness/bruising/drainage from incisions, or uncontrolled pain. Please make sure to take stool softeners as needed to prevent constipation. Follow the wound care instructions provided to you from the office. Medications Unchanged acetaminophen (acetaminophen 325 mg oral capsule)2 cap by mouth every 6 hours as needed as needed for pain. Refills: 0. acetaminophen (Tylenol Extra Strength 500 mg oral tablet)2 tab(s) by mouth every 4 hours as needed for pain. amitriptyline (amitriptyline 10 mg oral tablet)1 tab(s) by mouth daily at bedtime. ergocalciferol (Vitamin D2 1.25 mg (50,000 intl units) oral capsule)1 cap by mouth every week. ON TUESDAY. ibuprofen (ibuprofen 200 mg oral tablet)2 tab(s) by mouth every 4 hours as needed for pain. ibuprofen (ibuprofen 600 mg oral tablet)1 tab(s) by mouth every 6 hours as needed for pain. Take with food or milk.. Refills: 0. oxyCODONE (oxyCODONE 5 mg oral tablet ( IMMEDIATE release ))1 tab(s) by mouth every 6 hours as needed for pain for 4 Days. Refills: 0. senna (senna (sennosides) 8.6 mg oral tablet)2 tab(s) by mouth daily at bedtime as needed for constipation. Refills: 0. sertraline (sertraline 50 mg oral tablet)1 tab(s) by mouth daily at bedtime. Follow Up Follow Up with LUCIO WARD DO, Obstetrics & Gynecology When Why: Follow-up as scheduled Where: [address] [place] [address] [place] [address]- [phone] Follow Up Appointments No qualifying data available. Follow Up Labs/Studies Discharge Labs No Follow-up Labs Discharge Studies No Follow-up Studies Discharge Diet Discharge Diet - Ordered -- No changes were made to your diet during your hospital stay. Please resume your pre hospitalization diet on discharge., 10/06/21 8:08:00 EDT Discharge Activity Discharge Activity - Discontinued -- Follow the post-operative/post-procedure activity instructions provided by your physician's office., 10/05/21 12:01:00 EDT Discharge Activity - Ordered -- Lifting Restricted less than 10 pounds May Shower Sexual [place] Restricted, No intercouorse or tub bathing for 6 weeks, no driving while taking pain meds, 10/06/21 8:08:00 EDT Condition on Discharge Stable Readmission Risk/Palliative Score No qualifying data available. Discharge Disposition Home Digitally Signed by YANIV STANLEY DO on 10/06/2021 01:59 PM [facility] 10-06-2021 Note Date of Service 10/06/2021 Chief Complaint Nausea/ vomiting Subjective Patient seen and examined. No acute events overnight. Her nausea and vomiting she was experiencing postoperatively yesterday has resolved. Her pain is well controlled. She is tolerating her regular diet and was able to eat last night once the nausea resolved. She has not yet passed gas. She is ambulating without difficulty and voiding spontaneously. She is experiencing only light vaginal bleeding. She does not have any fevers, chills, shortness of breath, chest pain, leg pain. Objective Vitals and Measurements T: 36.8 C (Oral) TMIN: 35.72 C TMAX: 37.4 C (Temporal Artery) HR: 116 RR: 18 BP: 13/82 SpO2: 94% Intake and Output 7AM Yesterday to 7AM Today Intake and Output (Last 24 hours) Intake Administration Information 2602.00 Output Urine Voided 800.00 Urinary Catheter Output: 350.00 Intra-Op Urine Catheter 260.00 Intra-Op EBL 250.00 Stool Count 0.00 Urine Count 1.00 Total Summary Total Intake 2602.00 Total Output 1660.00 Fluid Balance 942.00 Physical Exam General: A&O x3 HEENT: normocephalic, atraumatic Cardio: RRR Lungs: Breathing w/out difficulty, no use of accessory muscles GI: Soft, non-tender, non-distended Extremities: non-edematous, neg Homans sign Neuro: Normal sensation, normal DTR Psychiatric: Normal affect, normal demeanor. Well groomed. Non-pressured speech. Skin: warm, no rashes. Weight Dosing Weight: 115.1 kg (10/05/21) Medications Medications (16) Active Scheduled: (9) acetaminophen 500 mg Tablet 1,000 mg 2 tab(s), Oral, q6hr amitriptyline 10 mg tablet 10 mg 1 tab(s), Oral, qHS docusate sodium 100 mg Capsule 100 mg 1 cap(s), Oral, BID ketorolac 15 mg/mL vial 15 mg 1 mL, IV Push, q6h lidocaine 1% (MPF) 2 mL vial pf 2.5 mg 0.25 mL, Intradermal, PREOP pharm scopolamine 1.5 mg (1 mg / 72 hours patch) 1 patch(es), Transdermal, q72h sertraline 50 mg tablet 50 mg 1 tab(s), Oral, qHS Transderm-Scop patch REMOVAL 1 EA, Miscellaneous, q72h Transderm-Scop patch REMOVAL 1 EA, Miscellaneous, Once Continuous: (1) NS (0.9% nacl) 1,000 mL 1,000 mL, Intravenous, 100 mL/hr PRN: (6) hydromorphone 1 mg/mL (1mL) INJ 1 mg 1 mL, IV Push, q4h magnesium hydroxide 8% Suspension 30 mL UD 30 mL, Oral, qDay metoclopramide 5 mg/mL (2mL) vial 10 mg 2 mL, IV Push, q6h ondansetron 2 mg/ 1 mL 2 mL INJ 4 mg 2 mL, IV Push, q4h oxycodone 5 mg tablet (immediate release) 5 mg 1 tab(s), Oral, q4h oxycodone 5 mg tablet (immediate release) 10 mg 2 tab(s), Oral, q4h Assessment/Plan 1. Abnormal uterine bleeding Postop day #1 status post TVH Continue routine postoperative care Her pain is well controlled She is tolerating her diet She is not passing gas Ambulating without difficulty She is voiding spontaneously CBC pending this a.m. 2. Post-op pain Acetaminophen, Toradol, oxycodone, IV Dilaudid breakthrough 3. Post-operative nausea and vomiting Her nausea is well controlled with scopolamine, Zofran, Reglan 4. Class II obesity Continue ambulation. Consider diet/lifestyle modifications outpatient. Consider Lovenox today for VTE PPx 5. Depression Continue Zoloft 6. Interstitial cystitis Continue amitriptyline Voiding spontaneously Patient is a 41-year-old white female POD#1 s/p Total Vaginal Hysterectomy for abnormal uterine bleeding to be admitted overnight for observation for management of post-op N/V and pain control. Activity: up ad annette Diet: ADAT IVF: NS 100 UOP: 800/8hrs Pain control: Acetaminophen, Toradol, oxycodone, IV Dilaudid breakthrough VTE prophylaxis: SCDs, consider Lovenox Code: Full Disposition: Patient is doing well postoperatively. Her nausea/vomiting yesterday has resolved this morning. She has not yet passed gas but is meeting all other post-operative milestones. Consider discharge today. Digitally Signed by YANIV STANLEY DO on 10/06/2021 06:15 AM [facility] 10-06-2021 Note Date of Service 10/06/2021 Chief Complaint Nausea/ vomiting Subjective Patient seen and examined. No acute events overnight. Her nausea and vomiting she was experiencing postoperatively yesterday has resolved. Her pain is well controlled. She is tolerating her regular diet and was able to eat last night once the nausea resolved. She has not yet passed gas. She is ambulating without difficulty and voiding spontaneously. She is experiencing only light vaginal bleeding. She does not have any fevers, chills, shortness of breath, chest pain, leg pain. Objective Vitals and Measurements T: 36.8 C (Oral) TMIN: 35.72 C TMAX: 37.4 C (Temporal Artery) HR: 116 RR: 18 BP: 13/82 SpO2: 94% Intake and Output 7AM Yesterday to 7AM Today Intake and Output (Last 24 hours) Intake Administration Information 2602.00 Output Urine Voided 800.00 Urinary Catheter Output: 350.00 Intra-Op Urine Catheter 260.00 Intra-Op EBL 250.00 Stool Count 0.00 Urine Count 1.00 Total Summary Total Intake 2602.00 Total Output 1660.00 Fluid Balance 942.00 Physical Exam General: A&O x3 HEENT: normocephalic, atraumatic Cardio: RRR Lungs: Breathing w/out difficulty, no use of accessory muscles GI: Soft, non-tender, non-distended Extremities: non-edematous, neg Homans sign Neuro: Normal sensation, normal DTR Psychiatric: Normal affect, normal demeanor. Well groomed. Non-pressured speech. Skin: warm, no rashes. Weight Dosing Weight: 115.1 kg (10/05/21) Medications Medications (16) Active Scheduled: (9) acetaminophen 500 mg Tablet 1,000 mg 2 tab(s), Oral, q6hr amitriptyline 10 mg tablet 10 mg 1 tab(s), Oral, qHS docusate sodium 100 mg Capsule 100 mg 1 cap(s), Oral, BID ketorolac 15 mg/mL vial 15 mg 1 mL, IV Push, q6h lidocaine 1% (MPF) 2 mL vial pf 2.5 mg 0.25 mL, Intradermal, PREOP pharm scopolamine 1.5 mg (1 mg / 72 hours patch) 1 patch(es), Transdermal, q72h sertraline 50 mg tablet 50 mg 1 tab(s), Oral, qHS Transderm-Scop patch REMOVAL 1 EA, Miscellaneous, q72h Transderm-Scop patch REMOVAL 1 EA, Miscellaneous, Once Continuous: (1) NS (0.9% nacl) 1,000 mL 1,000 mL, Intravenous, 100 mL/hr PRN: (6) hydromorphone 1 mg/mL (1mL) INJ 1 mg 1 mL, IV Push, q4h magnesium hydroxide 8% Suspension 30 mL UD 30 mL, Oral, qDay metoclopramide 5 mg/mL (2mL) vial 10 mg 2 mL, IV Push, q6h ondansetron 2 mg/ 1 mL 2 mL INJ 4 mg 2 mL, IV Push, q4h oxycodone 5 mg tablet (immediate release) 5 mg 1 tab(s), Oral, q4h oxycodone 5 mg tablet (immediate release) 10 mg 2 tab(s), Oral, q4h Assessment/Plan 1. Abnormal uterine bleeding Postop day #1 status post TVH Continue routine postoperative care Her pain is well controlled She is tolerating her diet She is not passing gas Ambulating without difficulty She is voiding spontaneously CBC pending this a.m. 2. Post-op pain Acetaminophen, Toradol, oxycodone, IV Dilaudid breakthrough 3. Post-operative nausea and vomiting Her nausea is well controlled with scopolamine, Zofran, Reglan 4. Class II obesity Continue ambulation. Consider diet/lifestyle modifications outpatient. Consider Lovenox today for VTE PPx 5. Depression Continue Zoloft 6. Interstitial cystitis Continue amitriptyline Voiding spontaneously Patient is a 41-year-old white female POD#1 s/p Total Vaginal Hysterectomy for abnormal uterine bleeding to be admitted overnight for observation for management of post-op N/V and pain control. Activity: up ad annette Diet: ADAT IVF: NS 100 UOP: 800/8hrs Pain control: Acetaminophen, Toradol, oxycodone, IV Dilaudid breakthrough VTE prophylaxis: SCDs, consider Lovenox Code: Full Disposition: Patient is doing well postoperatively. Her nausea/vomiting yesterday has resolved this morning. She has not yet passed gas but is meeting all other post-operative milestones. Consider discharge today. Digitally Signed by YANIV STANLEY DO on 10/06/2021 06:15 AM [facility] 08-08-2022 History and physical note Date of Service 10/05/2021 Chief Complaint Post-op N/V and LLQ pain History of Present Illness Patient is a 41-year-old white female who underwent total vaginal hysterectomy today with Dr. Ward for abnormal uterine bleeding and thickened endometrial lining. Since being in same day surgery unit, she has continued to have left lower quadrant pain which radiates to her groin and upper thigh and wraps around to her lower back. Not relieved with Toradol, Tylenol and oxycodone. She has ambulated to the restroom and voiding spontaneously without issue. She also endorses persistent nausea and has had multiple episodes of vomiting after attempting to drink water and eat crackers. She recently received a dose of Reglan and states she feels this has helped with the nausea. She denies lightheadedness/dizziness, fevers/chills, CP, SOB. Not yet passing flatus. Review of Systems See HPI Physical Exam Vitals and Measurements T: 36.3 C (Temporal Artery) TMIN: 35.72 C TMAX: 37.4 C (Temporal Artery) HR: 88 RR: 16 BP: 140/88 BP: 146/80(Right Arm) SpO2: 95% HT: 170.2 cm WT: 115.1 kg Weight Dosing Weight: 115.1 kg (10/05/21) General: A&O x3, no acute distress. Resting in bed. HEENT: normocephalic, atraumatic Cardio: RRR, S1/S2 Lungs: Breathing w/out difficulty, no use of accessory muscles, CTAB GI: Hypoactive BS, soft, very mild tenderness on palpation in left lower quadrant, but no rebound or guarding. Abdomen otherwise non-tender. Extremities: mild bilateral LE edema, neg Homans sign Lab Results 09/21/2021: 4.8>12.7/37.8>301, K 4.0, Cr 0.62 Imaging Results and Diagnostics None Assessment/Plan 1. Abnormal uterine bleeding -POD#0 s/p TVH. -Routine Postoperative care -Ambulating without difficulty -Voiding spontaneously -Pathology pending -CBC in AM. 2. Post-op pain -POD#0 has continued to have LLQ pain, thigh discomfort and left lower back pain since surgery. -Admit overnight for observation and pain control. -Tylenol and Toradol scheduled. Oxycodone and Dilaudid PRN. -Abdomen non-tender on exam. Consider possible musculoskeletal strain from positioning during surgery. Imaging not required at this time. 3. Post-operative nausea and vomiting -Has been unable to tolerate PO intake. -Cont. IV Zofran PRN. Added Reglan which has improved nausea. Cont. PRN. 4. Class II obesity -Continue ambulation. Diet/lifestyle modifications outpatient. -Consider Lovenox in AM for VTE ppx. 5. Depression -Continue Zoloft 6. Interstitial cystitis -Continue Amitriptyline. -Voiding spontaneously. Patient is a 41-year-old white female POD#0 s/p Total Vaginal Hysterectomy for abnormal uterine bleeding to be admitted overnight for observation for management of post-op N/V and pain control. >> Admit to regular floor for overnight observation >> Condition: Stable >> Vitals: q4hr >> Activity: Up ad Annette >> Nursing: Routine >> Diet: ADAT >> IVF: NS 100ml/hr >> Diagnostic: None >> DVT Prophylaxis: SCDs. Consider Lovenox in AM. >> Labs: CBC in AM. >> Code Status: Full Dispo: admit overnight for observation for pain control and N/V management. ADAT. D/W Dr. Ward. Problem List/Past Medical History Abnormal Uterine Bleeding with Thickened Endometrial Lining Interstitial Cystitis Irritable Bowel Syndrome Depression OBGYN HISTORY: , prior vaginal deliveries. Denies history of abnormal PAP smears. Menses irregular and heavy. Procedure/Surgical History Endoscope: 2014 Cholecystectomy: 2001 Endoscope: 2001 Total Vaginal Hysterectomy 10/05/2021 Medications Home Medications amitriptyline 10 mg oral tablet 10 mg = 1 tab(s), Oral, qHS sertraline 50 mg oral tablet 50 mg = 1 tab(s), Oral, qHS Vitamin D2 1.25 mg (50,000 intl units) oral capsule 50,000 International_Unit = 1 cap(s), Oral, qWeek Allergies Latex (Rash, Itching) iodine Social History Smoking Status - 07/30/2016 Never smoker Alcohol Use: Never., 09/21/2021 Home/Environment Domestic Concerns: Denies., 09/21/2021 Substance Abuse Use: Never., 09/21/2021 Tobacco Nicotine Use: Never (less than 100 in lifetime)., 09/21/2021 Family History Asthma: Sister. Cancer: Mother. HTN - Hypertension: Mother and Father. Code Status Code Status - Ordered -- 10/05/21 18:35:00 EDT, Full Code, Constant Order Digitally Signed by YADIRA PRATER MD on 10/05/2021 07:23 PM Digitally Signed by Mel Ward RN [facility] 10-05-2021 Note A. Received in formalin, labeled with the patients name, Case #[id number], and uterus and cervix Weight/dimensions-160 g and measures 10.5 cm (fundus to cervix), 5 cm (cornu to cornu), 5.5 cm (anterior to posterior). Hdzosd-biz-ryhp, smooth Cervix/endocervix-4.5 cm in diameter and 4.5 cm in length Szslvvyliac-peoxclxpfx-lnozvu endometrial cavity measuring 3 x 4 cm, endometrium lining measuring 0.2 cm Crweacxwrf-xpx-ihpu measuring up to 3 cm with no masses or nodules identified. RS-3 Cassette Summary: A1-cervix A2-Anterior endomyometrium A3-Posterior endomyometrium Dictated by [place] [facility] 10-05-2021 Hospital Discharg e instructions Patient Education 10/05/2021 12:05:23 9 - AO Vaginal Hysterectomy, Care After - 01/2017(CUSTOM) Vaginal Hysterectomy, Care After Refer to this sheet in the next few weeks. These instructions provide you with information on caring for yourself after your procedure. Your health care provider may also give you more specific instructions. Your treatment has been planned according to current medical practices, but problems sometimes occur. Call your health care provider if you have any problems or questions after your procedure. WHAT TO EXPECT AFTER THE PROCEDURE After your procedure, it is typical to have the following: Pelvic pain. You will be given pain medicine to control it. Sore throat from the breathing tube that was inserted during surgery. Gas pains are felt higher in the abdomen and respond well to Simethicone HOME CARE INSTRUCTIONS Only take eqni-cnt-sjhrcpl or prescription medicines for pain, discomfort, or fever as directed by your health care provider. Do not take aspirin. It can cause bleeding. Do not drive when taking pain medicine. Follow your health care provider's advice regarding diet, exercise, lifting, driving, and general activities. Resume your usual diet as directed and allowed. Get plenty of rest and sleep. Do not douche, use tampons, or have sexual intercourse for at least 6 weeks, or until your health care provider gives you permission. Monitor your temperature and notify your health care provider of a fever. Take showers instead of baths for 2 3 weeks. Do not drink alcohol until your health care provider gives you permission. If you develop constipation, you may take a mild laxative with your health care provider's permission. Bran foods may help with constipation problems. Drinking enough fluids to keep your urine clear or pale yellow may help as well. Try to have someone home with you for 1 2 weeks to help around the house. Keep all of your follow-up appointments as directed by your health care provider. SEEK MEDICAL CARE IF: You have increasing pain around your pelvis. You notice a bad smell coming from your vagina You feel dizzy or lightheaded. You have pain or bleeding when you urinate. You have persistent diarrhea. You have persistent nausea and vomiting. You have abnormal vaginal discharge. You have a rash. You have any type of abnormal reaction or develop an allergy to your medicine. You have poor pain control with your prescribed medicine. SEEK IMMEDIATE MEDICAL CARE IF: You have a fever. You have severe abdominal pain. You have chest pain. You have shortness of breath. You faint. You have pain, swelling, or redness in your leg. You have heavy vaginal bleeding with blood clots. MAKE SURE YOU: Understand these instructions. Will watch your condition. Will get help right away if you are not doing well or get worse. Document Released: 02/03/2012 Document Revised: 02/19/2014 Document Reviewed: 08/30/2013 ExitCare Patient Information 2015 [place]. This information is not intended to replace advice given to you by your health care provider. Make sure you discuss any questions you have with your health care provider. Follow Up Care 08/14/2021 11:53:18 With:LUCIO WARD DO, Obstetrics & Gynecology Address: [address] [place] [address] [place] [address] [phone] When: Unknown Comments:Follow-up as scheduled [facility] 1. Abnormal uterine bleeding -POD#0 s/p TVH. -Routine Postoperative care -Ambulating without difficulty -Voiding spontaneously -Pathology pending -CBC in AM. 2. Post-op pain -POD#0 has continued to have LLQ pain, thigh discomfort and left lower back pain since surgery. -Admit overnight for observation and pain control. -Tylenol and Toradol scheduled. Oxycodone and Dilaudid PRN. -Abdomen non-tender on exam. Consider possible musculoskeletal strain from positioning during surgery. Imaging not required at this time. 3. Post-operative nausea and vomiting -Has been unable to tolerate PO intake. -Cont. IV Zofran PRN. Added Reglan which has improved nausea. Cont. PRN. 4. Class II obesity -Continue ambulation. Diet/lifestyle modifications outpatient. -Consider Lovenox in AM for VTE ppx. 5. Depression -Continue Zoloft 6. Interstitial cystitis -Continue Amitriptyline. -Voiding spontaneously. Patient is a 41-year-old white female POD#0 s/p Total Vaginal Hysterectomy for abnormal uterine bleeding to be admitted overnight for observation for management of post-op N/V and pain control. >> Admit to regular floor for overnight observation >> Condition: Stable >> Vitals: q4hr >> Activity: Up ad Annette >> Nursing: Routine >> Diet: ADAT >> IVF: NS 100ml/hr >> Diagnostic: None >> DVT Prophylaxis: SCDs. Consider Lovenox in AM. >> Labs: CBC in AM. >> Code Status: Full Dispo: admit overnight for observation for pain control and N/V management. ADAT. D/W Dr. Ward. Future Scheduled Tests Radiology* CT Abdomen and Pelvis w/ contrast 06/25/21 [facility] 08-08-2022 Summary of episode note Discharge Instructions Thank you for allowing [facility] to assist you with your healthcare needs. The following is importantdischarge information regarding your hospital visit. Your Care Team ERIC CORMIER Your Diagnosis Post-op pain What to do next Follow Up Appointments Follow Up with LUCIO WARD DO, Obstetrics & Gynecology When Why: Follow-up as scheduled Where: [id number] [facility] [place] [address]- [phone] The Following Activity and Diet Have Been Ordered for You Discharge Activity - Ordered -- Follow the post-operative/post-procedure activity instructions provided by your physician's office., 10/05/21 12:01:00 EDT Discharge Diet - Ordered -- Follow the post-operative/post-procedure diet instructions provided by your physician's office.,10/05/21 12:01:00 EDT The Following Equipment Has Been Ordered for You Discharge Home Equipment Discharge Wound Care - Ordered -- Follow the post-operative/post-procedure wound care instructions provided by your physician's office., 10/05/21 12:01:00 EDT The Following Treatments Have Been Ordered for You Discharge Labs No qualifying data available. Discharge Radiology No qualifying data available. Other Therapies No qualifying data available. Post Acute Orders No qualifying data available. Someone Will Contact You Regarding These Home Health Referrals No home referrals have been ordered for you. No one will call you. Allergies Latex (Rash, Itching) iodine Medications Please ask your primary doctor or pharmacist before taking any other medication not listed, including over the counter drugs, herbal medications, vitamins and or supplements as they may interact withyour home medications. What How Much When Why Instructions Last Dose New oxyCODONE (oxyCODONE 5 mg oral tablet ( IMMEDIATErelease )) 1 tab(s) by mouth Every 6 hours as needed for for pain Post-op pain Duration: 4 Days Printed Prescription New senna (senna (sennosides) 8.6 mg oral tablet) 2 tab(s) by mouth Daily at bedtime as needed for for constipation Printed Prescription Changed acetaminophen (acetaminophen 325 mg oral capsule) 2 cap by mouth Every 6 hours as needed for as needed for pain Printed Prescription Changed acetaminophen (Tylenol Extra Strength 500 mg oral tablet) 2 tab(s) by mouth Every 4 hours as needed for for pain Changed ibuprofen (ibuprofen 200 mg oral tablet) 2 tab(s) by mouth Every 4 hours as needed for for pain Changed ibuprofen (ibuprofen 600 mg oral tablet) 1 tab(s) by mouth Every 6 hours as needed for for pain Take with food or milk. Printed Prescription Unchanged amitriptyline (amitriptyline 10 mg oral tablet) 1 tab(s) by mouth Daily at bedtime Unchanged ergocalciferol (Vitamin D2 1.25 mg (50,000 intl units) oral capsule) 1 cap by mouth Every week ON TUESDAY Unchanged sertraline (sertraline 50 mg oral tablet) 1 tab(s) by mouth Daily at bedtime Please take this list to your next doctor s visit. Bring all medications you take, including over the counter medications, herbals and other supplements with you to your doctor s visit. Patients and families are reminded to discard old lists and to update any records with all medication providers or retail pharmacies. Education Materials Vaginal Hysterectomy, Care After Refer to this sheet in the next few weeks. These instructions provide you with information on caring for yourself after your procedure. Your health care provider may also give you more specific instructions. Your treatment has been planned according to current medical practices, but problems sometimes occur. Call your health care provider if you have any problems or questions after your procedure. WHAT TO EXPECT AFTER THE PROCEDURE After your procedure, it is typical to have the following: Pelvic pain. You will be given pain medicine to control it. Sore throat from the breathing tube that was inserted during surgery. Gas pains are felt higher in the abdomen and respond well to Simethicone HOME CARE INSTRUCTIONS Only take ukje-lre-tmwtlox or prescription medicines for pain, discomfort, or fever as directed by your health care provider. Do not take aspirin. It can cause bleeding. Do not drive when taking pain medicine. Follow your health care provider's advice regarding diet, exercise, lifting, driving, and general activities. Resume your usual diet as directed and allowed. Get plenty of rest and sleep. Do not douche, use tampons, or have sexual intercourse for at least 6 weeks, or until your health care provider gives you permission. Monitor your temperature and notify your health care provider of a fever. Take showers instead of baths for 2 3 weeks. Do not drink alcohol until your health care provider gives you permission. If you develop constipation, you may take a mild laxative with your health care provider's permission. Bran foods may help with constipation problems. Drinking enough fluids to keep your urine clear or pale yellow may help as well. Try to have someone home with you for 1 2 weeks to help around the house. Keep all of your follow-up appointments as directed by your health care provider. SEEK MEDICAL CARE IF: You have increasing pain around your pelvis. You notice a bad smell coming from your vagina You feel dizzy or lightheaded. You have pain or bleeding when you urinate. You have persistent diarrhea. You have persistent nausea and vomiting. You have abnormal vaginal discharge. You have a rash. You have any type of abnormal reaction or develop an allergy to your medicine. You have poor pain control with your prescribed medicine. SEEK IMMEDIATE MEDICAL CARE IF: You have a fever. You have severe abdominal pain. You have chest pain. You have shortness of breath. You faint. You have pain, swelling, or redness in your leg. You have heavy vaginal bleeding with blood clots. MAKE SURE YOU: Understand these instructions. Will watch your condition. Will get help right away if you are not doing well or get worse. Document Released: 02/03/2012 Document Revised: 02/19/2014 Document Reviewed: 08/30/2013 ExitCare Patient Information 2015 [employer]. This information is not intended to replace advicegiven to you by your health care provider. Make sure you discuss any questions you have with your health care provider. Additional Information VACCINATE! IT SAVES LIVES! Members of the community who have not yet received the COVID-19 vaccine and would like to receive it can visit one of [facility] vaccine clinics. There are many vaccine clinic locations within the [facility]. For locations and available times, please visit [email or web address] It is important to note that some COVID mobile vaccine clinics are held outdoors and may be canceled in rainy or stormy conditions. To learn more about pediatric vaccinations (ages 5-11), we invite you to visit the [facility] webpage. [email or web address] learn more about the COVID-19 vaccine, we invite you to visit the [facility] website for a list of frequently asked questions. [email or web address] [facility] Patient Portal Access Instructions: Stay connected with your healthcare team and access your personal medical information anytime with the [facility] Patient [facility].If you would like a full copy of your medical records, please contact the [facility] Medical Records Department, Tuesday through Tuesday between 8a.m. and 4:30p.m. Please follow the directions below to access the portal: 1.Access the email account you provided upon registration to the hospital.2.Look for an invitation email from [facility].3.Open the email and access the invitation link: Accept Invitation to [facility]4.Fill in the required linn to create your account. Sign into [email or web address] with your username and password that you created in the above steps to stay up to date. You can then view a summary of results, a summary of your visits, and the ability to download your summaries to your computer or send the information securely to a physician. Remember that your healthcare information is confidential, so carefully consider who you will allow to register on the [facility] Patient Portal for access to your information. You can also access the [facility] Patient Portal on the [employer] Simply click on Health Records under [employer] and then click on the [facility] logo. HOW TO SAFELY DISPOSE OF PRESCRIPTION MEDICATIONS Please use one of the following methods to safely dispose of your unused medications. 1.Use a drug disposal kit: the drug disposal pouch allows you to safely discard your old and unuseddrugs. Ask your nurse to give you one when you are discharged.2.Visit a local take-back location: Many local pharmacies and police departments have programs that collect old and unwanted prescriptiondrugs. Call your local pharmacy or go to http://[employer]/7K3Uz0k to find one close to you.3.Make use of household items: Use cat litter or old coffee grounds to dispose medications if other options arenot available. Mix your drugs with these household products, seal them in an airtight container andthrow it into the garbage. Call [facility]: [phone] to be sure your drugs can be disposed of in this way. Some medicines may require a different approach.4.Never flush your medications down the toilet. IF YOU HAVE BEEN PRESCRIBED AN OPIOID FOR PAIN If you have been prescribed an opioid (such as hydrocodone, oxycodone or morphine), it is critical to understand the possible side effects and risks of opioid pain medications. Even when taken as directed, opioids can have several side effects including: Tolerance, meaning you might need to take more of a medication for the same pain relief. Nausea, vomiting and/or constipation. Sleepiness, dizziness, dry mouth, confusion, depression or itching. Physical dependence, meaning you have withdrawal symptoms when a medication is stopped, can develop within a few days. KNOW YOUR RESPONSIBILITIES It is important to know exactly how much and how often to take the opioid pain medications you are prescribed. Never take opioids in higher amounts or more often than prescribed. Do not combine opioids with alcohol or other drugs that cause drowsiness, such as benzodiazepines, also known as benzos, including diazepam and alprazolam, muscle relaxants or sleep aids. Never sell or share prescription opioids. This is illegal. Store opioids in a secure place and out of reach of others (including children, family, friends and visitors). The last page of this document has been signed and retained as a CHART COPY. Signatures Patient Education Materials 9 - AO Vaginal Hysterectomy, Care After - 01/2017(CUSTOM) Medication Leaflets My discharge plan and instructions have been reviewed and explained to me and I,WILLIAM CÁRDENAS understand my current condition and have read and understand these discharge instructions. I have received a written copy of the plan/instructions. If I have questions, I am aware that I should contact my doctor. Patient/Catholic Priest Signature: Date/Time: Relationship to Patient: Witness Name/Signature: Date/Time: [id number] Note A. Received in formalin, labeled with the patients name, Case #[id number], and uterus and cervix Weight/dimensions-160 g and measures 10.5 cm (fundus to cervix), 5 cm (cornu to cornu), 5.5 cm (anterior to posterior). Rvdizl-lvg-madz, smooth Cervix/endocervix-4.5 cm in diameter and 4.5 cm in length Tponvcfildw-kwdlyzxsgy-yiitsu endometrial cavity measuring 3 x 4 cm, endometrium lining measuring 0.2 cm Eycabauowc-odm-hhxg measuring up to 3 cm with no masses or nodules identified. RS-3 Cassette Summary: A1-cervix A2-Anterior endomyometrium A3-Posterior endomyometrium Dictated by [facility] 08-08-2022 Note A. Received in formalin, labeled with the patients name, Case #[id number], and uterus and cervix Weight/dimensions-160 g and measures 10.5 cm (fundus to cervix), 5 cm (cornu to cornu), 5.5 cm (anterior to posterior). Btrogt-fxf-lwxa, smooth Cervix/endocervix-4.5 cm in diameter and 4.5 cm in length Wbxfvubekfl-awrxsdpbju-qhzioy endometrial cavity measuring 3 x 4 cm, endometrium lining measuring 0.2 cm Rjuqnmdcdp-sbo-suas measuring up to 3 cm with no masses or nodules identified. RS-3 Cassette Summary: A1-cervix A2-Anterior endomyometrium A3-Posterior endomyometrium Dictated by [facility] 08-08-2022 Note A. Received in formalin, labeled with the patients name, Case #[id number], and uterus and cervix Weight/dimensions-160 g and measures 10.5 cm (fundus to cervix), 5 cm (cornu to cornu), 5.5 cm (anterior to posterior). Ardfhs-pqm-rrts, smooth Cervix/endocervix-4.5 cm in diameter and 4.5 cm in length Aklwkhzwowd-ebzpccwbjb-aaofly endometrial cavity measuring 3 x 4 cm, endometrium lining measuring 0.2 cm Dyguqwtoca-vti-uvgv measuring up to 3 cm with no masses or nodules identified. RS-3 Cassette Summary: A1-cervix A2-Anterior endomyometrium A3-Posterior endomyometrium Dictated by [facility] 08-08-2022 Anesthesiology Consult note Patient: WILLIAM CÁRDENAS Age: 41 years Sex: Female : 1980 Associated Diagnoses: None Author: DICK ANDREWS MD Postoperative Information Post Operative Info: Post op day: Post Anesthesia Care Unit. Patient location: PACU. Assessment Postanesthesia assessment Vitals: Vital signs from flowsheet : Vital Signs 10/05/2021 11:45 EDT Temperature Temporal Artery 37.4 DegC Heart Rate Monitored 96 bpm Respiratory Rate 16 br/min Systolic Blood Pressure NBP 114 mmHg Diastolic Blood Pressure NBP 72 mmHg Mean Arterial Pressure (NBP) 82 mmHg 10/05/2021 11:40 EDT Heart Rate Monitored 90 bpm 10/05/2021 11:37 EDT Heart Rate Monitored 96 bpm 10/05/2021 11:29 EDT Heart Rate Monitored 94 bpm Systolic Blood Pressure NBP 117 mmHg Diastolic Blood Pressure NBP 81 mmHg Mean Arterial Pressure (NBP) 90 mmHg 10/05/2021 11:26 EDT Respiratory Rate 16 br/min 10/05/2021 11:12 EDT Respiratory Rate 16 br/min 10/05/2021 11:07 EDT Heart Rate Monitored 96 bpm Respiratory Rate 16 br/min Systolic Blood Pressure NBP 117 mmHg Diastolic Blood Pressure NBP 63 mmHg 10/05/2021 11:06 EDT Heart Rate Monitored 92 bpm Systolic Blood Pressure NBP 121 mmHg Diastolic Blood Pressure NBP 68 mmHg Mean Arterial Pressure (NBP) 82 mmHg 10/05/2021 10:53 EDT Heart Rate Monitored 92 bpm Respiratory Rate 16 br/min Systolic Blood Pressure NBP 121 mmHg Diastolic Blood Pressure NBP 68 mmHg 10/05/2021 10:39 EDT Heart Rate Monitored 90 bpm Respiratory Rate 16 br/min Systolic Blood Pressure NBP 111 mmHg Diastolic Blood Pressure NBP 61 mmHg 10/05/2021 10:37 EDT Heart Rate Monitored 85 bpm 10/05/2021 10:29 EDT Heart Rate Monitored 85 bpm Systolic Blood Pressure NBP 110 mmHg Diastolic Blood Pressure NBP 66 mmHg Mean Arterial Pressure (NBP) 76 mmHg 10/05/2021 10:20 EDT Heart Rate Monitored 79 bpm Heart Rate Monitored 76 bpm Respiratory Rate 20 br/min Systolic Blood Pressure NBP 107 mmHg Systolic Blood Pressure NBP 110 mmHg Diastolic Blood Pressure NBP 57 mmHg LOW Diastolic Blood Pressure NBP 66 mmHg Mean Arterial Pressure (NBP) 68 mmHg 10/05/2021 10:07 EDT Temperature Temporal Artery 36.2 DegC Heart Rate Monitored 75 bpm Respiratory Rate 20 br/min Systolic Blood Pressure NBP 107 mmHg Diastolic Blood Pressure NBP 57 mmHg LOW 10/05/2021 10:00 EDT Heart Rate Monitored 67 bpm bpm Respiratory Rate 9 br/min br/min 10/05/2021 9:58 EDT Systolic Blood Pressure NBP 105 mmHg mmHg Diastolic Blood Pressure NBP 56 mmHg mmHg 10/05/2021 9:55 EDT Temperature (Route Not Specified) 36.66 DegC DegC Heart Rate Monitored 72 bpm bpm Respiratory Rate 12 br/min br/min Systolic Blood Pressure NBP 97 mmHg mmHg Diastolic Blood Pressure NBP 56 mmHg mmHg 10/05/2021 9:52 EDT Systolic Blood Pressure NBP 101 mmHg mmHg Diastolic Blood Pressure NBP 53 mmHg mmHg 10/05/2021 9:50 EDT Temperature (Route Not Specified) 36.63 DegC DegC Heart Rate Monitored 72 bpm bpm Respiratory Rate 14 br/min br/min 10/05/2021 9:49 EDT Systolic Blood Pressure NBP 107 mmHg mmHg Diastolic Blood Pressure NBP 55 mmHg mmHg 10/05/2021 9:46 EDT Systolic Blood Pressure NBP 104 mmHg mmHg Diastolic Blood Pressure NBP 61 mmHg mmHg 10/05/2021 9:45 EDT Temperature (Route Not Specified) 36.62 DegC DegC Heart Rate Monitored 70 bpm bpm Respiratory Rate 10 br/min br/min 10/05/2021 9:43 EDT Systolic Blood Pressure NBP 105 mmHg mmHg Diastolic Blood Pressure NBP 59 mmHg mmHg 10/05/2021 9:40 EDT Temperature (Route Not Specified) 36.61 DegC DegC Heart Rate Monitored 70 bpm bpm Respiratory Rate 10 br/min br/min Systolic Blood Pressure NBP 105 mmHg mmHg Diastolic Blood Pressure NBP 60 mmHg mmHg 10/05/2021 9:37 EDT Systolic Blood Pressure NBP 107 mmHg mmHg Diastolic Blood Pressure NBP 62 mmHg mmHg 10/05/2021 9:35 EDT Temperature (Route Not Specified) 36.59 DegC DegC Heart Rate Monitored 68 bpm bpm Respiratory Rate 10 br/min br/min 10/05/2021 9:34 EDT Systolic Blood Pressure NBP 116 mmHg mmHg Diastolic Blood Pressure NBP 63 mmHg mmHg 10/05/2021 9:31 EDT Systolic Blood Pressure NBP 100 mmHg mmHg Diastolic Blood Pressure NBP 57 mmHg mmHg 10/05/2021 9:30 EDT Temperature (Route Not Specified) 36.58 DegC DegC Heart Rate Monitored 69 bpm bpm Respiratory Rate 9 br/min br/min 10/05/2021 9:28 EDT Systolic Blood Pressure NBP 100 mmHg mmHg Diastolic Blood Pressure NBP 62 mmHg mmHg 10/05/2021 9:25 EDT Temperature (Route Not Specified) 36.56 DegC DegC Heart Rate Monitored 66 bpm bpm Respiratory Rate 9 br/min br/min Systolic Blood Pressure NBP 100 mmHg mmHg Diastolic Blood Pressure NBP 60 mmHg mmHg 10/05/2021 9:22 EDT Systolic Blood Pressure NBP 111 mmHg mmHg Diastolic Blood Pressure NBP 62 mmHg mmHg 10/05/2021 9:20 EDT Temperature (Route Not Specified) 36.54 DegC DegC Heart Rate Monitored 71 bpm bpm Respiratory Rate 8 br/min br/min 10/05/2021 9:19 EDT Systolic Blood Pressure NBP 98 mmHg mmHg Diastolic Blood Pressure NBP 59 mmHg mmHg 10/05/2021 9:16 EDT Systolic Blood Pressure NBP 103 mmHg mmHg Diastolic Blood Pressure NBP 60 mmHg mmHg 10/05/2021 9:15 EDT Temperature (Route Not Specified) 36.5 DegC DegC Heart Rate Monitored 65 bpm bpm Respiratory Rate 8 br/min br/min 10/05/2021 9:13 EDT Systolic Blood Pressure NBP 102 mmHg mmHg Diastolic Blood Pressure NBP 64 mmHg mmHg 10/05/2021 9:10 EDT Temperature (Route Not Specified) 36.47 DegC DegC Heart Rate Monitored 67 bpm bpm Respiratory Rate 8 br/min br/min Systolic Blood Pressure NBP 101 mmHg mmHg Diastolic Blood Pressure NBP 58 mmHg mmHg 10/05/2021 9:07 EDT Systolic Blood Pressure NBP 105 mmHg mmHg Diastolic Blood Pressure NBP 60 mmHg mmHg 10/05/2021 9:05 EDT Temperature (Route Not Specified) 36.43 DegC DegC Heart Rate Monitored 68 bpm bpm Respiratory Rate 8 br/min br/min 10/05/2021 9:04 EDT Systolic Blood Pressure NBP 109 mmHg mmHg Diastolic Blood Pressure NBP 59 mmHg mmHg 10/05/2021 9:01 EDT Systolic Blood Pressure NBP 120 mmHg mmHg Diastolic Blood Pressure NBP 74 mmHg mmHg 10/05/2021 9:00 EDT Temperature (Route Not Specified) 36.48 DegC DegC Heart Rate Monitored 80 bpm bpm Respiratory Rate 20 br/min br/min 10/05/2021 8:58 EDT Systolic Blood Pressure NBP 102 mmHg mmHg Diastolic Blood Pressure NBP 64 mmHg mmHg 10/05/2021 8:55 EDT Temperature (Route Not Specified) 36.44 DegC DegC Heart Rate Monitored 70 bpm bpm Respiratory Rate 8 br/min br/min Systolic Blood Pressure NBP 107 mmHg mmHg Diastolic Blood Pressure NBP 65 mmHg mmHg 10/05/2021 8:52 EDT Systolic Blood Pressure NBP 100 mmHg mmHg Diastolic Blood Pressure NBP 58 mmHg mmHg 10/05/2021 8:50 EDT Temperature (Route Not Specified) 36.36 DegC DegC Heart Rate Monitored 64 bpm bpm Respiratory Rate 7 br/min br/min 10/05/2021 8:49 EDT Systolic Blood Pressure NBP 102 mmHg mmHg Diastolic Blood Pressure NBP 64 mmHg mmHg 10/05/2021 8:46 EDT Systolic Blood Pressure NBP 100 mmHg mmHg Diastolic Blood Pressure NBP 58 mmHg mmHg 10/05/2021 8:45 EDT Temperature (Route Not Specified) 36.28 DegC DegC Heart Rate Monitored 61 bpm bpm Respiratory Rate 8 br/min br/min 10/05/2021 8:43 EDT Systolic Blood Pressure NBP 105 mmHg mmHg Diastolic Blood Pressure NBP 67 mmHg mmHg 10/05/2021 8:40 EDT Temperature (Route Not Specified) 36.24 DegC DegC Heart Rate Monitored 66 bpm bpm Respiratory Rate 8 br/min br/min Systolic Blood Pressure NBP 110 mmHg mmHg Diastolic Blood Pressure NBP 65 mmHg mmHg 10/05/2021 8:37 EDT Systolic Blood Pressure NBP 106 mmHg mmHg Diastolic Blood Pressure NBP 67 mmHg mmHg 10/05/2021 8:35 EDT Temperature (Route Not Specified) 36.19 DegC DegC Heart Rate Monitored 65 bpm bpm Respiratory Rate 7 br/min br/min 10/05/2021 8:34 EDT Systolic Blood Pressure NBP 93 mmHg mmHg Diastolic Blood Pressure NBP 54 mmHg mmHg 10/05/2021 8:31 EDT Systolic Blood Pressure NBP 105 mmHg mmHg Diastolic Blood Pressure NBP 59 mmHg mmHg 10/05/2021 8:30 EDT Temperature (Route Not Specified) 36.12 DegC DegC Heart Rate Monitored 74 bpm bpm Respiratory Rate 8 br/min br/min 10/05/2021 8:29 EDT Systolic Blood Pressure NBP 110 mmHg mmHg Diastolic Blood Pressure NBP 75 mmHg mmHg 10/05/2021 8:25 EDT Temperature (Route Not Specified) 36.03 DegC DegC Heart Rate Monitored 53 bpm bpm Respiratory Rate 8 br/min br/min Systolic Blood Pressure NBP 91 mmHg mmHg Diastolic Blood Pressure NBP 58 mmHg mmHg 10/05/2021 8:22 EDT Systolic Blood Pressure NBP 99 mmHg mmHg Diastolic Blood Pressure NBP 61 mmHg mmHg 10/05/2021 8:20 EDT Temperature (Route Not Specified) 35.86 DegC DegC Heart Rate Monitored 57 bpm bpm Respiratory Rate 10 br/min br/min 10/05/2021 8:19 EDT Systolic Blood Pressure NBP 102 mmHg mmHg Diastolic Blood Pressure NBP 60 mmHg mmHg 10/05/2021 8:16 EDT Systolic Blood Pressure NBP 109 mmHg mmHg Diastolic Blood Pressure NBP 67 mmHg mmHg 10/05/2021 8:15 EDT Temperature (Route Not Specified) 35.75 DegC DegC Heart Rate Monitored 69 bpm bpm Respiratory Rate 12 br/min br/min 10/05/2021 8:13 EDT Systolic Blood Pressure NBP 112 mmHg mmHg Diastolic Blood Pressure NBP 60 mmHg mmHg 10/05/2021 8:10 EDT Temperature (Route Not Specified) 35.72 DegC DegC Heart Rate Monitored 81 bpm bpm Respiratory Rate 12 br/min br/min Systolic Blood Pressure NBP 108 mmHg mmHg Diastolic Blood Pressure NBP 66 mmHg mmHg 10/05/2021 8:07 EDT Systolic Blood Pressure NBP 114 mmHg mmHg Diastolic Blood Pressure NBP 64 mmHg mmHg 10/05/2021 8:05 EDT Temperature (Route Not Specified) 35.78 DegC DegC Heart Rate Monitored 79 bpm bpm Respiratory Rate 12 br/min br/min 10/05/2021 8:04 EDT Systolic Blood Pressure NBP 114 mmHg mmHg Diastolic Blood Pressure NBP 66 mmHg mmHg 10/05/2021 8:01 EDT Systolic Blood Pressure NBP 112 mmHg mmHg Diastolic Blood Pressure NBP 61 mmHg mmHg 10/05/2021 8:00 EDT Temperature (Route Not Specified) 35.74 DegC DegC Heart Rate Monitored 81 bpm bpm Respiratory Rate 12 br/min br/min 10/05/2021 7:58 EDT Systolic Blood Pressure NBP 116 mmHg mmHg Diastolic Blood Pressure NBP 68 mmHg mmHg 10/05/2021 7:55 EDT Temperature (Route Not Specified) 35.83 DegC DegC Heart Rate Monitored 83 bpm bpm Respiratory Rate 12 br/min br/min Systolic Blood Pressure NBP 115 mmHg mmHg Diastolic Blood Pressure NBP 72 mmHg mmHg 10/05/2021 7:52 EDT Systolic Blood Pressure NBP 124 mmHg mmHg Diastolic Blood Pressure NBP 70 mmHg mmHg 10/05/2021 7:50 EDT Temperature (Route Not Specified) 36.04 DegC DegC Heart Rate Monitored 88 bpm bpm Respiratory Rate 12 br/min br/min 10/05/2021 7:49 EDT Systolic Blood Pressure NBP 123 mmHg mmHg Diastolic Blood Pressure NBP 73 mmHg mmHg 10/05/2021 7:45 EDT Heart Rate Monitored 91 bpm bpm Respiratory Rate 17 br/min br/min 10/05/2021 7:43 EDT Systolic Blood Pressure NBP 188 mmHg mmHg Diastolic Blood Pressure NBP 111 mmHg mmHg 10/05/2021 7:40 EDT Heart Rate Monitored 90 bpm bpm Respiratory Rate 12 br/min br/min (Modified) Systolic Blood Pressure NBP 145 mmHg mmHg Diastolic Blood Pressure NBP 83 mmHg mmHg 10/05/2021 7:37 EDT Systolic Blood Pressure NBP 166 mmHg mmHg Diastolic Blood Pressure NBP 96 mmHg mmHg 10/05/2021 7:35 EDT Respiratory Rate 20 br/min br/min (Modified) 10/05/2021 5:57 EDT Temperature Temporal Artery 36.4 DegC Apical Heart Rate 90 bpm Respiratory Rate 16 br/min Systolic BP Right Arm 146 mmHg HI Diastolic BP Right Arm 80 mmHg . Mental status: at preoperative baseline. Respiratory function: respirations are non-labored, stable. Respiratory support: none. CV function: stable. Cardiovascular support: none. Pain: satisfactory. Nausea status: satisfactory. Postoperative hydration status: within normal limits. Notes: Patient is sufficiently recovered from anesthesia to participate in the evaluation. No follow-up care needed. No complications post-anesthesia.. Digitally Signed by DICK ANDREWS MD on 10/05/2021 11:52 AM [id number] Note Brief Operative Note: Date of Surgery: 10/05/2021 Pre-Op Diagnosis: Abnormal uterine bleeding Post-Op Diagnosis: Same Procedure: Total Vaginal Hysterectomy Surgeon: Dr. Ward Sample Puller: Dr. Travis PGY3 Anesthesia: General, Endotracheal EBL: 250mL IVF: 1700mL UOP: 260mL Complications: None Full operative dictation to follow. Digitally Signed by GUY TRAVIS DO on 10/05/2021 10:18 AM [facility] [id number] Anesthesiology Consult note Patient: WILLIAM CÁRDENAS Age: 41 years Sex: Female : 1980 Associated Diagnoses: None Author: FIORELLA FRY MD Preoperative Information NPO > 8 hours Anesthesia history Patient's history: negative. Health Status Allergies: Allergic Reactions (Selected) Severity Not Documented Iodine- No reactions were documented. Latex- Itching and rash., Allergies (2) ActiveReaction iodineNone Documented LatexRash Current medications: (Selected) Inpatient Medications Ordered Kefzol: Start: 10/05/21 6:00:00 EDT, Dose= 2 gram(s), = 20 mL, IV Push (INT), PREOP pharm, 18 hour(s), Stop date 10/05/21 23:59:00 EDT, Rate: 240 mL/hr, Infuse over: 5 minute(s), 20 mL LR 1,000 mL: Start: 10/05/21 5:00:00 EDT, Rate: 20 mL/hr, 10/05/21 5:00:00 EDT LR 1,000 mL: Start: 10/05/21 6:00:00 EDT, 18 hour(s), Stop date 10/05/21 23:59:00 EDT, Rate: 125 mL/hr Transderm-Scop 1 mg/72 hr transdermal film, extended release: Start: 10/05/21 5:00:00 EDT, Dose = 1patch(es), ER Film, Transdermal, q72h, 10/05/21 5:00:00 EDT Xylocaine HCl 1% injectable solution: Start: 10/05/21 6:00:00 EDT, Dose = 2.5 mg, = 0.25 mL, Intradermal, PREOP pharm, 18 hour(s), Stop: 10/05/21 23:59:00 EDT, 0 lidocaine 1% preservative-free injectable solution: Start: 10/05/21 5:00:00 EDT, Dose = 2.5 mg, = 0.25 mL, Intradermal, PREOP pharm, 10/05/21 5:00:00 EDT scopolamine (Transderm-Scop Patch REMOVAL): Start: 10/05/21 5:00:00 EDT, Once, 10/05/21 5:00:00 EDT scopolamine (Transderm-Scop Patch REMOVAL): Start: 10/08/21 5:00:00 EDT, q72h, 10/08/21 5:00:00 EDT Documented Medications Documented Vitamin D2 1.25 mg (50,000 intl units) oral capsule: Dose : 50,000 International_Unit = 1 cap(s), Oral, qWeek, ON TUESDAY, # 30 cap(s), 0 Refill(s) amitriptyline 10 mg oral tablet: Dose : 10 mg = 1 tab(s), Oral, qHS, # 90 tab(s), 0 Refill(s) ibuprofen 200 mg oral tablet: Dose : 400 mg = 2 tab(s), Oral, q4h, PRN for pain, 0 Refill(s) sertraline 50 mg oral tablet: Dose : 50 mg = 1 tab(s), Oral, qHS, # 30 tab(s), 0 Refill(s) Suspended Tylenol Extra Strength 500 mg oral tablet: Dose : 1,000 mg = 2 tab(s), Oral, q4h, PRN for pain, # 120 tab(s), 0 Refill(s) Problem list: Medical Interstitial cystitis / SNOMED CT 382240525 / Confirmed Irritable bowel syndrome / SNOMED CT 29004169 / Confirmed Hematuria, microscopic / SNOMED CT 644884983 / Confirmed Obesity / SNOMED CT 2851966561 / Confirmed Pelvic pain in female / SNOMED CT 4149798945 / Confirmed, Active Problems (14) Abnormal uterine bleeding Bleeding BMI 39.0-39.9,adult COVID-19 Depression Glasses Headache Hematuria, microscopic Interstitial cystitis Irritable bowel syndrome MVP (mitral valve prolapse) Obesity Pelvic pain in female Post-operative nausea and vomiting Histories Past Medical History: Active Pelvic pain in female (7188488749) Irritable bowel syndrome (56997159) Interstitial cystitis (575191857) Hematuria, microscopic (059027853) Obesity (3147738637) Resolved Asthma (626066289): Resolved. Comments: 07/23/2016 EDT 12:35 EDT - Joaquin Vega as a child, no longer uses any meds. Urinary tract infection (266265107): Resolved. Orthodontics (9903110034): Resolved. Comments: 07/23/2016 EDT 12:38 EDT - Joaquin Vega upper and lower braces Urinary frequency (535532613): Resolved. Procedure history: Endoscope (77824934) in 2014 at 34 Years. Cholecystectomy (61941976) in 2001 at 21 Years. Endoscope (64613617) in 2001 at 21 Years. Social History Social & Psychosocial Habits Alcohol 09/21/2021 Use: Never Substance Abuse 09/21/2021 Use: Never Tobacco 09/21/2021 Tobacco Use: Never (less than 100 in l Home/Environment 09/21/2021 Domestic Concerns Denies . Physical Examination Vital Signs(last 24 hrs) Last Charted Resp Rate 16 br/min (OCT 05 05:57) Measurements from flowsheet : Measurements 10/05/2021 5:57 EDT Height 170.2 cm Height in inches 67 inch(es) Admission Weight 115.1 kg Weight Lbs 253.2 lb Weight Method Actual [place] Body Weight 61.62 kg 10/05/2021 5:52 EDT Admission Weight 115.1 kg (Modified) Body Mass Index 39.73 kg/m2 Body Mass Index 39.73 kg/m2 General: Alert and oriented. Airway: Mallampati classification: II (soft palate, fauces, uvula visible). Dentition Evaluation: Intact. Respiratory: Lungs are clear to auscultation, Respirations are non-labored. Cardiovascular: Normal rate, Regular rhythm. Heart Sounds: Normal. Neurologic: Alert, Oriented. Review / Management Documentation reviewed: Current records. Assessment and Plan [place] [employer] (ASA) physical status classification: Class II. Anesthetic Preoperative Plan Premedication: intravenous. Anesthetic technique: General. Induction: intravenously. Maintenance airway: Oral endotracheal tube. Postoperative pain management: Per surgeon. Informed consent: signed by patient. Digitally Signed by FIORELLA FRY MD on 10/05/2021 07:22 AM [id number] Evaluation + Plan note Future Appointments Future Scheduled Tests Radiology* CT Abdomen and Pelvis w/ contrast 4/28/22 [facility] 04-28-2022 Evaluation + Plan note Future Scheduled Tests Radiology* CT Abdomen and Pelvis w/ contrast 06/25/21 [facility] Hospital course Narrative No data available for this section [facility] Hospital Discharge instructions No data available for this section [facility] Progress note No data available for this section [facility] Summary Purpose Family History No Family History Records Found Advance Directives No Advanced Directives Records Found Additional Source Comments Care Team (unrecognized sect ion and content) Care Team Personnel Name: ERIC CORMIER Member Role: Primary Care Physician Address: Address: [address] Care Team Related Persons Name: MELIA, DELONTE Address: Home [address] [place] [address] Care Team Personnel Name: ERIC CORMIER Member Role: Primary Care Physician Address: Address: [facility] [address] [place] [address] Care Team Related Persons Name: DELONTE CÁRDENAS Address: Home [address] [place] [id number] Patient Care team informatio n (unrecognized section and content) Care Team Personnel Name: ERIC CORMIER Member Role: Primary Care Physician Address: Address: [facility] [address] [place] [address] Care Team Related Persons Name: DELONTE CÁRDENAS Address: Home [address] [place] [id number] [place] Care Team Personnel Name: ERIC CORMIER Member Role: Primary Care Physician Address: Address: [facility] [address] [place] [address] Care Team Related Persons Name: DELONTE CÁRDENAS Address: Home [address] [place] [id number] [place] INFORMATION SOURCE (unrecogn ized section and content) FOR RECORDS PERTAINING TO PATIENTS WHO ARE OR HAVE BEEN ENROLLED IN A CHEMICAL DEPENDENCY/SUBSTANCEABUSE PROGRAM, SOME INFORMATION MAY BE OMITTED. This clinical summary was aggregated from multiple sources. Caution should be exercised in using it in the provision of clinical care. This summary normalizes information from multiple sources, and as a consequence, information in this document may materially change the coding, format and clinical context of patient data. In addition, data may be omitted in some cases. CLINICAL DECISIONS SHOULD BE BASED ON THE PRIMARY CLINICAL RECORDS. [facility] provides no warranty or guarantee of the accuracy or completeness of information in this document.
== END | disposition home or self-care (01) ==
LOC: OPBI 08:18
PROVIDERS: Referring Provider Obstetrics & Gynecology; Visit Provider Obstetrics & Gynecology
DX: Z12.31 Encounter for screening mammogram for malignant neoplasm of breast (principal)
CPT/HCPCS: 77063; 77067